=== PATIENT | female | born 1940 | race Two or more races ===

== ENCOUNTER 2017-03-29 15:13 | Inpatient (IN) | payer OTHER ==
[~2017-03-29] VITALS: Ht 157.5 cm; Wt 72.6 kg
--- NOTE | 2017-03-29 15:35 | PHYS DOC ---
Adult General Chief Complaint Chief Complaint: MECHANICAL FALL HPI HPI Patient is a 76 year old female who presents with left knee left ankle pain. She was washing her kitchen floor when she took her shoes off and slipped and fell. She denies any head injury neck pain back pain showing complains about her left knee and left ankle. Review of Systems Review of Systems Constitutional: Denies fever or chills [] Eyes: Denies change in visual acuity, redness, or eye pain [] HENT: Denies nasal congestion or sore throat [] Respiratory: Denies cough or shortness of breath [] Cardiovascular: No additional information not addressed in HPI [] GI: Denies abdominal pain, nausea, vomiting, bloody stools or diarrhea [] : Denies dysuria or hematuria [] Musculoskeletal: Denies back pain, positive for left knee left ankle pain Integument: Denies rash or skin lesions [] Neurologic: Denies headache, focal weakness or sensory changes [] Endocrine: Denies polyuria or polydipsia [] Current Medications Current Medications Current Medications Medications (Trade) Dose Ordered Sig/Antony Start Time Stop Time Status Last Admin Dose Admin Fentanyl Citrate (Fentanyl 2ml Vial) 25 mcg PRN Q15MIN PRN 03/29/17 18:00 03/30/17 17:59 03/29/17 18:13 25 MCG Allergies Allergies Allergies Coded Allergies Type Severity Reaction Last Updated Verified morphine Allergy Intermediate RASH 03/29/17 Yes atorvastatin Allergy Unknown RASH 03/29/17 Yes fenofibrate Allergy Unknown RASH 03/29/17 Yes metformin Allergy Unknown RASH 03/29/17 Yes phenobarbital Allergy Unknown EFFECTED PANCREAS 03/29/17 Yes phenytoin Allergy Unknown EFFECTED PANCREAS 03/29/17 Yes pioglitazone Allergy Unknown RASH 03/29/17 Yes primidone Allergy Unknown RASH 03/29/17 Yes simvastatin Allergy Unknown RASH 03/29/17 Yes sitagliptin Allergy Unknown RASH 03/29/17 Yes Physical Exam Physical Exam Constitutional: Well developed, well nourished, no acute distress, non-toxic appearance. [] HENT: Normocephalic, atraumatic, bilateral external ears normal, oropharynx moist, no oral exudates, nose normal. [] Eyes: PERRLA, EOMI, conjunctiva normal, no discharge. [] Neck: Normal range of motion, no tenderness, supple, no stridor. [] Cardiovascular:Heart rate regular rhythm, no murmur [] Lungs & Thorax: Bilateral breath sounds clear to auscultation [] Abdomen: Bowel sounds normal, soft, no tenderness, no masses, no pulsatile masses. [] Skin: Warm, dry, no erythema, no rash. [] Back: No tenderness, no CVA tenderness. [] Extremities: Tender palpation over the left ankle with ecchymosis, no obvious deformity noted, left knee shows some laxity with varus stress, anterior posterior drawer negative, no cyanosis, no clubbing, ROM intact, no edema. [] Neurologic: Alert and oriented X 3, normal motor function, normal sensory function, no focal deficits noted. [] Psychologic: Affect normal, judgement normal, mood normal. [] Current Patient Data Vital Signs Vital Signs Date Time Temp Pulse Resp B/P (MAP) Pulse Ox O2 Delivery O2 Flow Rate FiO2 03/29/17 18:00 61 17 214/107 (142) 97 Room Air 03/29/17 15:36 98.9 98.9 Lab Values Laboratory Tests Test 03/29/17 18:00 White Blood Count 13.2 x10^3/uL (4.0-11.0) H Red Blood Count 4.03 x10^6/uL (3.50-5.40) Hemoglobin 12.2 g/dL (12.0-15.5) Hematocrit 36.4 % (36.0-47.0) Mean Corpuscular Volume 91 fL (79-100) Mean Corpuscular Hemoglobin 30 pg (25-35) Mean Corpuscular Hemoglobin Concent 34 g/dL (31-37) Red Cell Distribution Width 13.0 % (11.5-14.5) Platelet Count 288 x10^3/uL (140-400) Neutrophils (%) (Auto) 80 % (31-73) H Lymphocytes (%) (Auto) 13 % (24-48) L Monocytes (%) (Auto) 5 % (0-9) Eosinophils (%) (Auto) 1 % (0-3) Basophils (%) (Auto) 0 % (0-3) Neutrophils # (Auto) 10.6 x10^3uL (1.8-7.7) H Lymphocytes # (Auto) 1.7 x10^3/uL (1.0-4.8) Monocytes # (Auto) 0.7 x10^3/uL (0.0-1.1) Eosinophils # (Auto) 0.1 x10^3/uL (0.0-0.7) Basophils # (Auto) 0.0 x10^3/uL (0.0-0.2) Prothrombin Time 13.5 SEC (11.7-14.0) Prothrombin Time INR 1.1 (0.8-1.1) PTT 27 SEC (24-38) Sodium Level 138 mmol/L (136-145) Potassium Level 3.8 mmol/L (3.5-5.1) Chloride Level 102 mmol/L (98-107) Carbon Dioxide Level 26 mmol/L (21-32) Anion Gap 10 (6-14) Blood Urea Nitrogen 15 mg/dL (7-20) Creatinine 0.7 mg/dL (0.6-1.0) Estimated GFR (Cockcroft-Gault) 80.9 Glucose Level 217 mg/dL (70-99) H Calcium Level 9.0 mg/dL (8.5-10.1) Laboratory Tests 03/29/17 18:00 Laboratory Tests 03/29/17 18:00 EKG EKG [] Radiology/Procedures Radiology/Procedures [address] [address] IMAGING REPORT Signed PATIENT: ANKITA GOOD ACCOUNT: [id number] : 1940 LOCATION: ER AGE: 76 SEX: F EXAM STATUS: REG ER ORD. PHYSICIAN: RHIANNA FONSECA MD REASON: fall PROCEDURE: KNEE LEFT 3V Indication pain associated with a fall. AP oblique and lateral views of the left knee were obtained. There is some modest lateral joint space compartment narrowing. There is a small knee joint effusion. An acute bony finding is not seen. IMPRESSION: No acute bony finding DICTATED and SIGNED BY: MIGUEL ANGEL WITT MD DATE: 03/29/17 1701 CC: [facility]; RHIANNA FONSECA MD ~ [address] [address] IMAGING REPORT Signed PATIENT: ANKITA GOOD ACCOUNT: [id number] : 1940 LOCATION: ER AGE: 76 SEX: F EXAM STATUS: REG ER ORD. PHYSICIAN: RHIANNA FONSECA MD REASON: pain PROCEDURE: ANKLE LEFT 3V Indication pain secondary to a fall. AP oblique and lateral views of the left ankle were obtained. There is a traumatic oblique nondisplaced fracture through the lateral malleolus. There is a transverse, traumatic, nondisplaced fracture through the medial malleolus. Associated soft tissue swelling is noted. Degenerative changes are noted involving the visualized midfoot IMPRESSION: Bimalleolar fracture left ankle DICTATED and SIGNED BY: MIGUEL ANGEL WITT MD DATE: 03/29/17 165 CC: [facility]; RHIANNA FONSECA MD ~ Impressions: Bimalleolar ankle fracture of the left Knee pain Diabetes Hypertension Seizure disorder Course & Med Decision Making Course & Med Decision Making Pertinent Labs and Imaging studies reviewed. (See chart for details) She presents with left ankle pain which shows a bimalleolar fracture. A posterior/U has been placed to stabilize the fracture. Splint was checked and dorsal pedis pulses intact and cap refills less than 2 seconds. Patient's being admitted to the hospitalist with consultation to Dr. Joseph. Patient's in stable condition this time with interim orders written. Dragon Disclaimer Dragon Disclaimer This electronic medical record was generated, in whole or in part, using a voice recognition dictation system. Departure Departure Impression: Primary Impression: Ankle fracture, left Disposition: ADMITTED INPATIENT Admitting Physician: Della Urrutia Condition: STABLE RHIANNA FONSECA MD Mar 29, 2017 15:34
--- NOTE | 2017-03-29 16:53 | RAD ---
Indication pain secondary to a fall. AP oblique and lateral views of the left ankle were obtained. There is a traumatic oblique nondisplaced fracture through the lateral malleolus. There is a transverse, traumatic, nondisplaced fracture through the medial malleolus. Associated soft tissue swelling is noted. Degenerative changes are noted involving the visualized midfoot IMPRESSION: Bimalleolar fracture left ankle
--- NOTE | 2017-03-29 17:05 | RAD ---
Indication pain associated with a fall. AP oblique and lateral views of the left knee were obtained. There is some modest lateral joint space compartment narrowing. There is a small knee joint effusion. An acute bony finding is not seen. IMPRESSION: No acute bony finding
[2017-03-29] MEDS ORDERED: fentaNYL PF VIAL 100 MCG/2 ML VIAL IV PRN (18:00)
[2017-03-29 18:15] LABS: BASO % 0 % (0-3); EOS % 1 % (0-3); HEMATOCRIT 36.4 % (36.0-47.0); HEMOGLOBIN 12.2 g/dL (12.0-15.5); LYMPH # 1.7 x10^3/uL (1.0-4.8); LYMPH % 13 % (24-48); MEAN CORPUSCULAR HEMOGLOBIN 30 pg (25-35); MEAN CORPUSCULAR HGB CONC 34 g/dL (31-37); MEAN CORPUSCULAR VOLUME 91 fL (79-100); MONO % 5 % (0-9); NEUT % 80 % (31-73); PLATELET COUNT 288 x10^3/uL (140-400); RED BLOOD COUNT 4.03 x10^6/uL (3.50-5.40); WHITE BLOOD COUNT 13.2 x10^3/uL (4.0-11.0)
[2017-03-29] MEDS ORDERED: ONDANSETRON PF 4 MG/2 ML VIAL. IV PRN ×2 (18:15→19:34)
[2017-03-29 18:28] LABS: INR 1.1 (0.8-1.1); PROTHROMBIN TIME PATIENT 13.5 SEC (11.7-14.0)
[2017-03-29 18:43] LABS: CREATININE 0.7 mg/dL (0.6-1.0); GFR 80.9; POTASSIUM 3.8 mmol/L (3.5-5.1)
[2017-03-29 19:30] VITALS: BP 157/67
[2017-03-29] MEDS ORDERED: DEXTROSE 50% 25 GM / 50ML DISP.SYRIN. IV PRN ×2 (19:45→21:15)
[2017-03-29] MEDS: ENOXAPARIN 40 MG/0.4 ML SYRINGE. SQ SCH (19:57)
[2017-03-29] MEDS: fentaNYL PF VIAL 100 MCG/2 ML VIAL IV PRN ×2 (19:58→22:37)
[2017-03-29] MEDS: FAMOTIDINE 20 MG/2 ML VIAL IVP SCH (19:58)
[2017-03-29] MEDS ORDERED: INSU100I13 SQ (20:21)
[2017-03-29] MEDS ORDERED: PRIM250T28 PO (20:21)
[2017-03-29] MEDS ORDERED: GLIP10TA13 PO (20:23)
[2017-03-29] MEDS ORDERED: CHOL10003 PO (21:12)
[2017-03-29] MEDS ORDERED: CLOP75TA PO (21:12)
[2017-03-29] MEDS ORDERED: FAMO20TA5 PO (21:12)
[2017-03-29] MEDS ORDERED: MULT-208 PO (21:12)
[2017-03-29] MEDS ORDERED: GABA-585 PO (21:12)
[2017-03-29] MEDS ORDERED: METO100T2 PO (21:12)
[2017-03-29] MEDS ORDERED: FENO54TA PO (21:12)
[2017-03-29] MEDS ORDERED: LOSA25TA4 PO (21:12)
--- NOTE | 2017-03-29 21:13 | PDOC1 ---
History and Physical Date of Admission Date of Admission DATE: 03/29/17 TIME: 21:06 Identification/Chief Complaint Chief Complaint kitchen floor fall Problems: Source Source: Caregiver, Chart review, Patient History of Present Illness History of Present Illness very pleasant 76 y/o female who lives at home with fellon her wet kitchen floor while she was cleaning it, landed/hurt her left ankle, could not bear weight afterwards so went to ER, shows bimalleolar fx. NO known CAD but has hx stable CHF. Follows with PCP, no cards needed. Admitted and scheduled for sx marie 8.AM. 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 Past Medical History Cardiovascular: HTN Pulmonary: Pulmonary embolus (10-15 yrs ago after hysterrectomy), Other Past Surgical History Past Surgical History: Hysterectomy Family History Family History: Hypertension Social History Smoke: No ALCOHOL: none Drugs: None Current Problem List Problem List Problems Medical Problems: (1) Ankle fracture, left Status: Acute Problems: Current Medications Current Medications Current Medications Fentanyl Citrate (Fentanyl 2ml Vial) 25 mcg PRN Q15MIN PRN IV PAIN GREATER THAN 3/10 Last administered on 03/29/17 18:13; Start 03/29/17 at 18:00; Stop 03/30 at 17:59 Ondansetron HCl (Zofran) 4 mg PRN Q8HRS PRN IV NAUSEA/VOMITING; Start 03/29/17 at 18:15; Stop 03/29/17 at 19:37; Status DC Fentanyl Citrate (Fentanyl 2ml Vial) 25 mcg PRN Q1HR PRN IV PAIN Last administered on 03/29/17 19:58; Start 03/29/17 at 18:15; Stop 03/30/17 at 18:14 Ondansetron HCl (Zofran) 4 mg PRN Q6HRS PRN IV NAUSEA/VOMITING; Start 03/29/17 at 19:34; Stop 03/30/17 at 19:33 Hydralazine HCl (Apresoline) 10 mg PRN Q4HRS PRN IVP ELEVATED BP, SEE COMMENTS ; Start 03/29/17 at 19:45 Enoxaparin Sodium (Lovenox 40mg Syringe) 40 mg Q24H SQ Last administered on 03/29 19:57; Start 03/29/17 at 19:45 Famotidine (Pepcid) 20 mg BID IVP Last administered on 03/29/17t 19:58; Start at 21:00 Acetaminophen (Tylenol) 500 mg PRN Q6HRS PRN PO MILD PAIN / TEMP; Start at 19:45 Insulin Aspart (NovoLOG) 0-7 UNITS TIDWMEALS SQ ; Start 03/30/17 at 08:00 Dextrose (Dextrose 50%-Water Syringe) 12.5 gm PRN Q15MIN PRN IV SEE COMMENTS; Start 03/29/17 at 19:45 Active Scripts Active Reported Glipizide 10 Mg Tablet 10 Mg PO BID Mysoline (Primidone) 250 Mg Tablet 250 Mg PO BID Lantus Solostar (Insulin Glargine,Hum.rec.anlog) 100 Unit/1 Ml Insuln.pen 25 Unit SQ HS Allergies Allergies: Coded Allergies: morphine (Verified Allergy, Intermediate, RASH, 03/29/17) atorvastatin (Verified Allergy, Unknown, RASH, 03/29/17) fenofibrate (Verified Allergy, Unknown, RASH, 03/29/17) metformin (Verified Allergy, Unknown, RASH, 03/29/17) phenobarbital (Verified Allergy, Unknown, EFFECTED PANCREAS, 03/29/17) phenytoin (Verified Allergy, Unknown, EFFECTED PANCREAS, 03/29/17) pioglitazone (Verified Allergy, Unknown, RASH, 03/29/17) primidone (Verified Allergy, Unknown, RASH, 03/29/17) simvastatin (Verified Allergy, Unknown, RASH, 03/29/17) sitagliptin (Verified Allergy, Unknown, RASH, 03/29/17) ROS General: No: Chills, Night Sweats, Fatigue, Malaise, Appetite, Other PSYCHOLOGICAL ROS: No: Anxiety, Behavioral Disorder, Concentration difficultie , Decreased libido, Depression, Disorientation, Hallucinations, Hostility, Irritablity, Memory difficulties, Mood Swings, Obsessive thoughts, Physical abuse, Sexual abuse, Sleep disturbances, Suicidal ideation, Other Eyes: No Blurry vision, No Decreased vision, No Double vision, No Dry eyes, No Excessive tearing, No Eye Pain, No Itchy Eyes, No Loss of vision, No Photophobia , No Scotomata, No Uses contacts, No Uses glasses, No Other HEENT: No: Heacaches, Visual Changes, Hearing change, Nasal congestion, Nasal discharge, Oral lesions, Sinus pain, Sore Throat, Epistaxis, Sneezing, Snoring, Tinnitus, Vertigo, Vocal changes, Other ALLERGY AND IMMUNOLOGY: No: Hives, Insect Bite Sensitivity, Itchy/Watery Eyes, Nasal Congestion, Post Nasal Drip, Seasonal Allergies, Other Hematological and Lymphatic: No: Bleeding Problems, Blood Clots, Blood Transfusions, Brusing, Night Sweats, Pallor, Swollen Lymph Nodes, Other ENDOCRINE: No: Breast Changes, Galactorrhea, Hair Pattern Changes, Hot Flashes , Malaise/lethargy, Mood Swings, Palpitations, Polydipsia/polyuria, Skin Changes , Temperature Intolerance, Unexpected Weight Changes, Other Breast: No New/Changing Breast Lumps, No Nipple changes, No Nipple discharge, No Other Respiratory: No: Cough, Hemoptysis, Orthopnea, Pleuritic Pain, Shortness of breath, SOB with excertion, Sputum Changes, Stridor, Tachypnea, Wheezing, Other Cardiovascular: No Chest Pain, No Palpitations, No Orthopnea, No Paroxysmal Noc. Dyspnea, No Edema, No Lt Headedness, No Other Gastrointestinal: No Nausea, No Vomiting, No Abdominal Pain, No Diarrhea, No Constipation, No Melena, No Hematochezia, No Other Genitourinary: No Dysuria, No Frequency, No Incontinence, No Hematuria, No Retention, No Discharge, No Urgency, No Pain, No Flank Pain, No Other, No , No , No , No , No , No , No Musculoskeletal: Yes Other (per HPI) Neurological: No Behavorial Changes, No Bowel/Bladder ControlChng, No Confusion , No Dizziness, No Gait Disturbance, No Headaches, No Impaired Coord/balance, No Memory Loss, No Numbness/Tingling, No Seizures, No Speech Problems, No Tremors, No Visual Changes, No Weakness, No Other Skin: No Dry Skin, No Eczema, No Hair Changes, No Lumps, No Mole Changes, No Mottling, No Nail Changes, No Pruritus, No Rash, No Skin Lesion Changes, No Other, No Acne Physical Exam General: Alert, Oriented X3, Cooperative, No acute distress HEENT: PERRLA, EOMI Lungs: Clear to auscultation Heart: S1S2, RRR, no thrills, no rubs, no gallops, no murmurs Breasts: Normal, Rt breast nml w/o mass, Lt breast nml w/o mass, Nipples normal Abdomen: Normal bowel sounds, Soft, No tenderness, No hepatosplenomegaly, No masses Rectal Exam: not examined PELVIC: Nml ext genitalia Extremities: Other (cast n R ankle./leg) Skin: No rashes, No breakdown, No significant lesion Neuro: Normal gait, Normal speech, Strength at 5/5 X4 ext, Normal tone, Sensation intact, Cranial nerves 3-12 NL, Reflexes 2+ Psych/Mental Status: Mental status NL Vitals Vitals Vital Signs Date Time Temp Pulse Resp B/P (MAP) Pulse Ox O2 Delivery O2 Flow Rate FiO2 03/29/17 20:30 16 Room Air 03/29/17 19:30 98.6 64 157/67 (97) 97 98.6 Labs Labs Laboratory Tests Test 03/29/17 18:00 03/29/17 20:51 White Blood Count 13.2 x10^3/uL (4.0-11.0) Red Blood Count 4.03 x10^6/uL (3.50-5.40) Hemoglobin 12.2 g/dL (12.0-15.5) Hematocrit 36.4 % (36.0-47.0) Mean Corpuscular Volume 91 fL (79-100) Mean Corpuscular Hemoglobin 30 pg (25-35) Mean Corpuscular Hemoglobin Concent 34 g/dL (31-37) Red Cell Distribution Width 13.0 % (11.5-14.5) Platelet Count 288 x10^3/uL (140-400) Neutrophils (%) (Auto) 80 % (31-73) Lymphocytes (%) (Auto) 13 % (24-48) Monocytes (%) (Auto) 5 % (0-9) Eosinophils (%) (Auto) 1 % (0-3) Basophils (%) (Auto) 0 % (0-3) Neutrophils # (Auto) 10.6 x10^3uL (1.8-7.7) Lymphocytes # (Auto) 1.7 x10^3/uL (1.0-4.8) Monocytes # (Auto) 0.7 x10^3/uL (0.0-1.1) Eosinophils # (Auto) 0.1 x10^3/uL (0.0-0.7) Basophils # (Auto) 0.0 x10^3/uL (0.0-0.2) Prothrombin Time 13.5 SEC (11.7-14.0) Prothromb Time International Ratio 1.1 (0.8-1.1) Activated Partial Thromboplast Time 27 SEC (24-38) Sodium Level 138 mmol/L (136-145) Potassium Level 3.8 mmol/L (3.5-5.1) Chloride Level 102 mmol/L (98-107) Carbon Dioxide Level 26 mmol/L (21-32) Anion Gap 10 (6-14) Blood Urea Nitrogen 15 mg/dL (7-20) Creatinine 0.7 mg/dL (0.6-1.0) Estimated GFR (Cockcroft-Gault) 80.9 Glucose Level 217 mg/dL (70-99) Calcium Level 9.0 mg/dL (8.5-10.1) Glucose (Fingerstick) 228 mg/dL (70-99) Laboratory Tests Test 03/29/17 18:00 03/29/17 20:51 White Blood Count 13.2 x10^3/uL (4.0-11.0) Red Blood Count 4.03 x10^6/uL (3.50-5.40) Hemoglobin 12.2 g/dL (12.0-15.5) Hematocrit 36.4 % (36.0-47.0) Mean Corpuscular Volume 91 fL (79-100) Mean Corpuscular Hemoglobin 30 pg (25-35) Mean Corpuscular Hemoglobin Concent 34 g/dL (31-37) Red Cell Distribution Width 13.0 % (11.5-14.5) Platelet Count 288 x10^3/uL (140-400) Neutrophils (%) (Auto) 80 % (31-73) Lymphocytes (%) (Auto) 13 % (24-48) Monocytes (%) (Auto) 5 % (0-9) Eosinophils (%) (Auto) 1 % (0-3) Basophils (%) (Auto) 0 % (0-3) Neutrophils # (Auto) 10.6 x10^3uL (1.8-7.7) Lymphocytes # (Auto) 1.7 x10^3/uL (1.0-4.8) Monocytes # (Auto) 0.7 x10^3/uL (0.0-1.1) Eosinophils # (Auto) 0.1 x10^3/uL (0.0-0.7) Basophils # (Auto) 0.0 x10^3/uL (0.0-0.2) Prothrombin Time 13.5 SEC (11.7-14.0) Prothromb Time International Ratio 1.1 (0.8-1.1) Activated Partial Thromboplast Time 27 SEC (24-38) Sodium Level 138 mmol/L (136-145) Potassium Level 3.8 mmol/L (3.5-5.1) Chloride Level 102 mmol/L (98-107) Carbon Dioxide Level 26 mmol/L (21-32) Anion Gap 10 (6-14) Blood Urea Nitrogen 15 mg/dL (7-20) Creatinine 0.7 mg/dL (0.6-1.0) Estimated GFR (Cockcroft-Gault) 80.9 Glucose Level 217 mg/dL (70-99) Calcium Level 9.0 mg/dL (8.5-10.1) Glucose (Fingerstick) 228 mg/dL (70-99) VTE Prophylaxis Ordered VTE Prophylaxis Devices: Yes VTE Pharmacological Prophylaxi: Yes Assessment/Plan Assessment/Plan 1. R bimalleolar ankle fx after mechanical fall, closed 2. REactive leukocytosis 3. DM 2 with hyperglycemia PLAn: Admit NPO post [facility] consult SSI moderate dose Dec levemir to 10 qhs since NPO (BS 220s) DVt prophy Dw pt and RN Cleared from IM to undergo sx CHRISTEN Kerr MD Mar 29, 2017 21:13
[2017-03-29 21:44] LABS: BILIRUBIN,URINE NEGATIVE (NEG); GLUCOSE,URINE 100 mg/dL (NEG); NITRITE,URINE NEGATIVE (NEG); PROTEIN,URINE NEGATIVE (NEG-TRACE); UROBILINOGEN,URINE 0.2 mg/dL (0.2 mg/dL)
[2017-03-29 21:55] LABS: BACTERIA,URINE MANY /HPF (0-FEW); RBC,URINE OCC /HPF (0-2); SQUAMOUS EPITHELIAL CELL,UR MOD /LPF; WBC,URINE 20-40 /HPF (0-4)
[2017-03-29 21:56] LABS: YEAST,URINE PRESENT /HPF
[2017-03-29] MEDS: INSULIN DETEMIR 300 UNITS/3 ML INSULN.PEN. SQ SCH (22:22)
[2017-03-29] MEDS: hydrALAZINE 20 MG/ML VIAL. IVP PRN (23:13)
[2017-03-29 23:17] VITALS: BP 191/55
[2017-03-29] MEDS: ACETAMINOPHEN 500 MG TABLET PO PRN (23:19)
[2017-03-30] VITALS (8 sets, daily range): BP systolic 102–198; BP diastolic 39–67
[2017-03-30 05:22] LABS: BASO % 0 % (0-3); EOS % 0 % (0-3); HEMATOCRIT 32.4 % (36.0-47.0); HEMOGLOBIN 10.8 g/dL (12.0-15.5); LYMPH # 1.5 x10^3/uL (1.0-4.8); LYMPH % 13 % (24-48); MEAN CORPUSCULAR HEMOGLOBIN 30 pg (25-35); MEAN CORPUSCULAR HGB CONC 33 g/dL (31-37); MEAN CORPUSCULAR VOLUME 90 fL (79-100); MONO % 5 % (0-9); NEUT % 82 % (31-73); PLATELET COUNT 261 x10^3/uL (140-400); RED BLOOD COUNT 3.61 x10^6/uL (3.50-5.40); RED CELL DISTRIBUTION WIDTH 12.9 % (11.5-14.5)
[2017-03-30 05:54] LABS: CALCIUM 8.8 mg/dL (8.5-10.1); CREATININE 0.6 mg/dL (0.6-1.0); GFR 96.7; POTASSIUM 3.7 mmol/L (3.5-5.1)
[2017-03-30] MEDS ORDERED: LATA2.5D3 OP (06:07)
[2017-03-30] MEDS ORDERED: INSULIN ASPART 300 UNITS/3 ML INSULN.PEN SQ SCH (08:00)
[2017-03-30] MEDS: glipiZIDE 5 MG TABLET PO SCH ×2 (08:00→16:45)
[2017-03-30] MEDS: INSULIN ASPART 300 UNITS/3 ML INSULN.PEN SQ SCH ×3 (08:00→16:50)
[2017-03-30] MEDS: fentaNYL PF VIAL 100 MCG/2 ML VIAL IV PRN ×3 (08:30→14:06)
[2017-03-30] MEDS: PRIMIDONE 250 MG TABLET PO SCH ×2 (09:00→20:36)
[2017-03-30] MEDS ORDERED: CLOPIDOGREL BISULFATE 75 MG TABLET PO SCH (09:00)
[2017-03-30] MEDS: METOPROLOL TART IMMED RELEASE 50 MG TABLET. PO SCH (09:00)
[2017-03-30] MEDS: FAMOTIDINE 20 MG/2 ML VIAL IVP SCH (09:00)
[2017-03-30] MEDS: FENOFIBRATE 54 MG TABLET. PO SCH (09:00)
[2017-03-30] MEDS ORDERED: FAMOTIDINE 20 MG TABLET. PO SCH (09:00)
[2017-03-30] MEDS: GABAPENTIN 100 MG CAPSULE. PO SCH ×3 (09:00→20:37)
[2017-03-30] MEDS: LOSARTAN POTASSIUM 25 MG TABLET. PO SCH (09:00)
[2017-03-30] MEDS: MULTIVITAMIN with MINERAL TABLET. PO SCH (09:00)
[2017-03-30] MEDS: CHOLECALCIFEROL (VITAMIN D3) 1,000 UNIT TABLET PO SCH (09:00)
--- NOTE | 2017-03-30 13:11 | PDOC2 ---
CONSULT Date of Consult Date of Consult DATE: 03/30/17 TIME: 12:54 Reason for Consult Reason for Consult: left ankle pain Referring Physician Referring Physician: Renan Identification/Chief Complaint Chief Complaint left ankle pain Source Source: Chart review, Patient History of Present Illness Reason for Visit: The patient is a 76 year old female who presents today with a chief complaint of left ankle pain. She presented to the ER after she slipped and fell on her freshly mopped floor. She says she lives at home with her . She uses a walker frequently for balance due to frequent falls. She is an insulin dependent diabetic who has also had a significant PE after a previous surgery. She has never had orthopedic surgery she reports. She is very anxious wondering if she will be able to walk again. Her pain is moderately severe, she was placed in a splint in the ER. Past Medical History Cardiovascular: HTN Pulmonary: Pulmonary embolus (10-15 yrs ago after hysterrectomy), Other Past Surgical History Past Surgical History: Hysterectomy Family History Family History: Hypertension Social History No ALCOHOL: none Drugs: None Lives: with Family Current Problem List Problem List Problems Medical Problems: (1) Ankle fracture, left Status: Acute Current Medications Current Medications Current Medications Fentanyl Citrate (Fentanyl 2ml Vial) 25 mcg PRN Q15MIN PRN IV PAIN GREATER THAN 3/10 Last administered on 03/29/17 18:13; Start 03/29/17 at 18:00; Stop 03/30 at 17:59 Ondansetron HCl (Zofran) 4 mg PRN Q8HRS PRN IV NAUSEA/VOMITING; Start 03/29/17 at 18:15; Stop 03/29/17 at 19:37; Status DC Fentanyl Citrate (Fentanyl 2ml Vial) 25 mcg PRN Q1HR PRN IV PAIN Last administered on 03/30/17 12:11; Start 03/29/17 at 18:15; Stop 03/30/17 at 18:14 Ondansetron HCl (Zofran) 4 mg PRN Q6HRS PRN IV NAUSEA/VOMITING; Start 03/29/17 at 19:34; Stop 03/30/17 at 19:33 Hydralazine HCl (Apresoline) 10 mg PRN Q4HRS PRN IVP ELEVATED BP, SEE COMMENTS Last administered on 03/29/17 23:13; Start 03/29/17 at 19:45 Enoxaparin Sodium (Lovenox 40mg Syringe) 40 mg Q24H SQ Last administered on 03/29 19:57; Start 03/29/17 at 19:45 Famotidine (Pepcid) 20 mg BID IVP Last administered on 03/30/17 09:00; Start at 21:00 Acetaminophen (Tylenol) 500 mg PRN Q6HRS PRN PO MILD PAIN / TEMP Last administered on 03/29/17 23:19; Start 03/29/17 at 19:45 Insulin Aspart (NovoLOG) 0-7 UNITS TIDWMEALS SQ ; Start 03/30/17 at 08:00; Stop 03/30/17 at 08:00; Status DC Dextrose (Dextrose 50%-Water Syringe) 12.5 gm PRN Q15MIN PRN IV SEE COMMENTS; Start 03/29/17 at 19:45 Insulin Aspart (NovoLOG) 0-7 UNITS TIDWMEALS SQ Last administered on 03/30/17 12:06; Start 03/30/17 at 08:00 Dextrose (Dextrose 50%-Water Syringe) 12.5 gm PRN Q15MIN PRN IV SEE COMMENTS; Start 03/29/17 at 21:15 Insulin Detemir (Levemir) 10 units QHS SQ Last administered on 03/29/17 22:22; Start 03/29/17 at 21:15 Vitamin D (Vitamin D3) 1,000 unit DAILY PO Last administered on 03/30/17 09:00 ; Start 03/30/17 at 09:00 Clopidogrel Bisulfate (Plavix) 75 mg DAILY PO Last administered on 03/30/17 09: 00; Start 03/30/17 at 09:00 Famotidine (Pepcid) 20 mg DAILY PO ; Start 03/30/17 at 09:00; Status Cancel Fenofibrate (Lofibra) 54 mg DAILY PO Last administered on 03/30/17 09:00; Start 03/30/17 at 09:00 Gabapentin (Neurontin) 100 mg TID PO Last administered on 03/30/17 09:00; Start 03/30/17 at 09:00 Losartan Potassium (Cozaar) 25 mg DAILY PO Last administered on 03/30/17 09:00 ; Start 03/30/17 at 09:00 Primidone (Mysoline) 250 mg BID PO Last administered on 03/30/17 09:00; Start 03/30/17 at 09:00 Glipizide (Glucotrol) 10 mg BIDWMEALS PO Last administered on 03/30/17 08:00; Start 03/30/17 at 08:00 Metoprolol Tartrate (Lopressor) 150 mg DAILY PO Last administered on 03/30/17 09:00; Start 03/30/17 at 09:00 Multivitamins (Thera M Plus) 1 tab DAILY PO Last administered on 03/30/17 09:00 ; Start 03/30/17 at 09:00 Latanoprost (Xalatan) 1 drop HS OU ; Start 03/30/17 at 21:00 Ondansetron HCl (Zofran) 4 mg PRN Q6HRS PRN IV NAUSEA/VOMITING; Start 03/31/17 at 07:00; Stop 04/01/17 at 06:59 Fentanyl Citrate (Fentanyl 2ml Vial) 25 mcg PRN Q5MIN PRN IV MILD PAIN; Start 03/31/17 at 07:00; Stop 04/01/17 at 06:59 Fentanyl Citrate (Fentanyl 2ml Vial) 50 mcg PRN Q5MIN PRN IV MODERATE PAIN; Start 03/31/17 at 07:00; Stop 04/01/17 at 06:59 Ringer's Solution 1,000 ml @ 0 mls/hr Q0M IV ; Start 03/31/17 at 07:00; Stop 03/31/17 at 18:59 Lidocaine HCl 2 ml PRN 1X PRN ID PRIOR TO IV START; Start 03/31/17 at 07:00; Stop 04/01/17 at 06:59 Prochlorperazine Edisylate (Compazine) 5 mg PACU PRN PRN IV NAUSEA, MRX1; Start 03/31/17 at 07:00; Stop 04/01/17 at 06:59 Active Scripts Active Reported Latanoprost 2.5 Ml Drops 1 Drop OP HS Fenofibrate 54 Mg Tablet 54 Mg PO DAILY Clopidogrel (Clopidogrel Bisulfate) 75 Mg Tablet 75 Mg PO DAILY Multi-Day Vitamins (Multivitamin) 1 Each Tablet 1 Each PO DAILY Vitamin D3 (Cholecalciferol (Vitamin D3)) 1,000 Unit Tablet 1,000 Unit PO DAILY Gabapentin 100 Mg Capsule 100 Mg PO TID Metoprolol Tartrate 100 Mg Tablet 150 Mg PO DAILY Losartan Potassium 25 Mg Tablet 25 Mg PO DAILY Famotidine 20 Mg Tablet 20 Mg PO DAILY Glipizide 10 Mg Tablet 10 Mg PO BID Mysoline (Primidone) 250 Mg Tablet 250 Mg PO BID Lantus Solostar (Insulin Glargine,Hum.rec.anlog) 100 Unit/1 Ml Insuln.pen 25 Unit SQ HS Allergies Allergies: Coded Allergies: morphine (Verified Allergy, Intermediate, RASH, 03/29/17) atorvastatin (Verified Allergy, Unknown, RASH, 03/29/17) metformin (Verified Allergy, Unknown, RASH, 03/29/17) phenobarbital (Verified Allergy, Unknown, EFFECTED PANCREAS, 03/29/17) phenytoin (Verified Allergy, Unknown, EFFECTED PANCREAS, 03/29/17) pioglitazone (Verified Allergy, Unknown, RASH, 03/29/17) simvastatin (Verified Allergy, Unknown, RASH, 03/29/17) sitagliptin (Verified Allergy, Unknown, RASH, 03/29/17) ROS General: No: Chills, Night Sweats, Fatigue, Malaise, Appetite, Other Musculoskeletal: Yes Gait Disturbance, Yes Joint Pain, Yes Joint Swelling Physical Exam General: Alert, Oriented X3, Cooperative, No acute distress MUSCULOSKELETAL: Other (LEFT LOWER EXTREMITY: in posterior mold splint with a u slab. skin intact, no blistering. Sensation intact to light touch in the tibial, superficial and deep peroneal, and sural nerve distribution. ) Vitals VITALS Vital Signs Date Time Temp Pulse Resp B/P (MAP) Pulse Ox O2 Delivery O2 Flow Rate FiO2 03/30/17 12:11 16 Nasal Cannula 03/30/17 11:00 98.2 63 161/48 (85) 95 98.2 Labs Labs Laboratory Tests Test 03/29/17 17:37 03/29/17 18:00 03/29/17 20:51 03/30/17 05:00 Urine Collection Type Unknown Urine Color Yellow Urine Clarity Cloudy Urine pH 6.0 Urine Specific [place] 1.015 Urine Protein Negative mg/dL (NEG-TRACE) Urine Glucose (UA) 100 mg/dL (NEG) Urine Ketones (Stick) Negative mg/dL (NEG) Urine Blood Negative (NEG) Urine Nitrite Negative (NEG) Urine Bilirubin Negative (NEG) Urine Urobilinogen Dipstick 0.2 mg/dL (0.2 mg/dL) Urine Leukocyte Esterase Moderate (NEG) Urine RBC Occ /HPF (0-2) Urine WBC 20-40 /HPF (0-4) Urine Squamous Epithelial Cells Mod /LPF Urine Bacteria Many /HPF (0-FEW) Urine Mucus Slight /LPF Urine Yeast Present /HPF White Blood Count 13.2 x10^3/uL (4.0-11.0) 12.0 x10^3/uL (4.0-11.0) Red Blood Count 4.03 x10^6/uL (3.50-5.40) 3.61 x10^6/uL (3.50-5.40) Hemoglobin 12.2 g/dL (12.0-15.5) 10.8 g/dL (12.0-15.5) Hematocrit 36.4 % (36.0-47.0) 32.4 % (36.0-47.0) Mean Corpuscular Volume 91 fL (79-100) 90 fL (79-100) Mean Corpuscular Hemoglobin 30 pg (25-35) 30 pg (25-35) Mean Corpuscular Hemoglobin Concent 34 g/dL (31-37) 33 g/dL (31-37) Red Cell Distribution Width 13.0 % (11.5-14.5) 12.9 % (11.5-14.5) Platelet Count 288 x10^3/uL (140-400) 261 x10^3/uL (140-400) Neutrophils (%) (Auto) 80 % (31-73) 82 % (31-73) Lymphocytes (%) (Auto) 13 % (24-48) 13 % (24-48) Monocytes (%) (Auto) 5 % (0-9) 5 % (0-9) Eosinophils (%) (Auto) 1 % (0-3) 0 % (0-3) Basophils (%) (Auto) 0 % (0-3) 0 % (0-3) Neutrophils # (Auto) 10.6 x10^3uL (1.8-7.7) 9.8 x10^3uL (1.8-7.7) Lymphocytes # (Auto) 1.7 x10^3/uL (1.0-4.8) 1.5 x10^3/uL (1.0-4.8) Monocytes # (Auto) 0.7 x10^3/uL (0.0-1.1) 0.6 x10^3/uL (0.0-1.1) Eosinophils # (Auto) 0.1 x10^3/uL (0.0-0.7) 0.0 x10^3/uL (0.0-0.7) Basophils # (Auto) 0.0 x10^3/uL (0.0-0.2) 0.0 x10^3/uL (0.0-0.2) Prothrombin Time 13.5 SEC (11.7-14.0) Prothromb Time International Ratio 1.1 (0.8-1.1) Activated Partial Thromboplast Time 27 SEC (24-38) Sodium Level 138 mmol/L (136-145) 136 mmol/L (136-145) Potassium Level 3.8 mmol/L (3.5-5.1) 3.7 mmol/L (3.5-5.1) Chloride Level 102 mmol/L (98-107) 102 mmol/L (98-107) Carbon Dioxide Level 26 mmol/L (21-32) 23 mmol/L (21-32) Anion Gap 10 (6-14) 11 (6-14) Blood Urea Nitrogen 15 mg/dL (7-20) 15 mg/dL (7-20) Creatinine 0.7 mg/dL (0.6-1.0) 0.6 mg/dL (0.6-1.0) Estimated GFR (Cockcroft-Gault) 80.9 96.7 Glucose Level 217 mg/dL (70-99) 200 mg/dL (70-99) Calcium Level 9.0 mg/dL (8.5-10.1) 8.8 mg/dL (8.5-10.1) Glucose (Fingerstick) 228 mg/dL (70-99) Test 03/30/17 07:34 03/30/17 11:35 Glucose (Fingerstick) 159 mg/dL (70-99) 258 mg/dL (70-99) Laboratory Tests Test 03/29/17 17:37 03/29/17 18:00 03/29/17 20:51 03/30/17 05:00 Urine Collection Type Unknown Urine Color Yellow Urine Clarity Cloudy Urine pH 6.0 Urine Specific [place] 1.015 Urine Protein Negative mg/dL (NEG-TRACE) Urine Glucose (UA) 100 mg/dL (NEG) Urine Ketones (Stick) Negative mg/dL (NEG) Urine Blood Negative (NEG) Urine Nitrite Negative (NEG) Urine Bilirubin Negative (NEG) Urine Urobilinogen Dipstick 0.2 mg/dL (0.2 mg/dL) Urine Leukocyte Esterase Moderate (NEG) Urine RBC Occ /HPF (0-2) Urine WBC 20-40 /HPF (0-4) Urine Squamous Epithelial Cells Mod /LPF Urine Bacteria Many /HPF (0-FEW) Urine Mucus Slight /LPF Urine Yeast Present /HPF White Blood Count 13.2 x10^3/uL (4.0-11.0) 12.0 x10^3/uL (4.0-11.0) Red Blood Count 4.03 x10^6/uL (3.50-5.40) 3.61 x10^6/uL (3.50-5.40) Hemoglobin 12.2 g/dL (12.0-15.5) 10.8 g/dL (12.0-15.5) Hematocrit 36.4 % (36.0-47.0) 32.4 % (36.0-47.0) Mean Corpuscular Volume 91 fL (79-100) 90 fL (79-100) Mean Corpuscular Hemoglobin 30 pg (25-35) 30 pg (25-35) Mean Corpuscular Hemoglobin Concent 34 g/dL (31-37) 33 g/dL (31-37) Red Cell Distribution Width 13.0 % (11.5-14.5) 12.9 % (11.5-14.5) Platelet Count 288 x10^3/uL (140-400) 261 x10^3/uL (140-400) Neutrophils (%) (Auto) 80 % (31-73) 82 % (31-73) Lymphocytes (%) (Auto) 13 % (24-48) 13 % (24-48) Monocytes (%) (Auto) 5 % (0-9) 5 % (0-9) Eosinophils (%) (Auto) 1 % (0-3) 0 % (0-3) Basophils (%) (Auto) 0 % (0-3) 0 % (0-3) Neutrophils # (Auto) 10.6 x10^3uL (1.8-7.7) 9.8 x10^3uL (1.8-7.7) Lymphocytes # (Auto) 1.7 x10^3/uL (1.0-4.8) 1.5 x10^3/uL (1.0-4.8) Monocytes # (Auto) 0.7 x10^3/uL (0.0-1.1) 0.6 x10^3/uL (0.0-1.1) Eosinophils # (Auto) 0.1 x10^3/uL (0.0-0.7) 0.0 x10^3/uL (0.0-0.7) Basophils # (Auto) 0.0 x10^3/uL (0.0-0.2) 0.0 x10^3/uL (0.0-0.2) Prothrombin Time 13.5 SEC (11.7-14.0) Prothromb Time International Ratio 1.1 (0.8-1.1) Activated Partial Thromboplast Time 27 SEC (24-38) Sodium Level 138 mmol/L (136-145) 136 mmol/L (136-145) Potassium Level 3.8 mmol/L (3.5-5.1) 3.7 mmol/L (3.5-5.1) Chloride Level 102 mmol/L (98-107) 102 mmol/L (98-107) Carbon Dioxide Level 26 mmol/L (21-32) 23 mmol/L (21-32) Anion Gap 10 (6-14) 11 (6-14) Blood Urea Nitrogen 15 mg/dL (7-20) 15 mg/dL (7-20) Creatinine 0.7 mg/dL (0.6-1.0) 0.6 mg/dL (0.6-1.0) Estimated GFR (Cockcroft-Gault) 80.9 96.7 Glucose Level 217 mg/dL (70-99) 200 mg/dL (70-99) Calcium Level 9.0 mg/dL (8.5-10.1) 8.8 mg/dL (8.5-10.1) Glucose (Fingerstick) 228 mg/dL (70-99) Test 03/30/17 07:34 03/30/17 11:35 Glucose (Fingerstick) 159 mg/dL (70-99) 258 mg/dL (70-99) Images Images Xrays of the left knee and ankle reveal no acute fracture or dislocation of the knee, she has a low bimalleolar ankle fracture on the left, minimally displaced. ankle mortise appears intact. osteopenic bone Assessment/Plan Assessment/Plan The patient is a 76 year old female who presented to the ER with a left bimalleolar ankle fracture after a slip and a fall. We discussed non-operative versus operative treatment of the patient's ankle fracture. The risks of surgery including the risk of undergoing anesthesia, bleeding, infection, nerve damage, malunion, and nonunion, blood clots were discussed at length. The benefits of surgery including pain relief and functional improvement of the ankle were also discussed. We also discussed the postoperative course of immobilization, weight restrictions, and physical therapy required after surgery. After a thorough discussion of the risks and benefits of an open reduction internal fixation of her left ankle fracture, the patient elected to proceed with surgery. The patient exhibited understanding of the risks and benefits of surgery, and all questions were answered. Plan for OR in the am, due to or availability. NPO at midnight will check vitamin D level patient is non-weight bearing on her left lower extremity both pre and postoperatively. anticipate she may need rehab after surgery. ALONZO TORREZ MD Mar 30, 2017 13:11
[2017-03-30] MEDS ORDERED: fentaNYL PF VIAL 100 MCG/2 ML VIAL IV PRN (16:15)
[2017-03-30] MEDS: oxyCODONE IR 5 MG TABLET PO PRN ×2 (16:45→20:41)
--- NOTE | 2017-03-30 17:12 | PDOC ---
PROGRESS NOTES Chief Complaint Chief Complaint Fall with L ankle fx ASSESSMENT AND PLAN: 1. L ankle fx: plan for fixation in AM by Dr Joseph. 2. Pain control: adequate. 3. UTI: empiriv ceftriax (single dose should be sufficient). culture pending 4. Hypertension: well controlled on low dose Cozaar. 5. DM2: fairly well controled on home glipizide. ISS added 6. CHF: by pt report; no clinical sx, no home meds 7. Prophylaxis: lovenox History of Present Illness History of Present Illness pain well controlled. no other c/o Vitals Vitals Vital Signs Date Time Temp Pulse Resp B/P (MAP) Pulse Ox O2 Delivery O2 Flow Rate FiO2 03/30/17 16:45 16 Room Air 03/30/17 11:00 98.2 63 161/48 (85) 95 98.2 Physical Exam General: Alert, Oriented X3, Cooperative, No acute distress Heart: Regular rate Lungs: Clear Abdomen: Normal bowel sounds, Soft, No tenderness Extremities: Other (cast L distal LE) Skin: No rashes Labs LABS Laboratory Tests Test 03/29/17 17:37 03/29/17 18:00 03/29/17 20:51 03/30/17 05:00 Urine Collection Type Unknown Urine Color Yellow Urine Clarity Cloudy Urine pH 6.0 Urine Specific [place] 1.015 Urine Protein Negative mg/dL (NEG-TRACE) Urine Glucose (UA) 100 mg/dL (NEG) Urine Ketones (Stick) Negative mg/dL (NEG) Urine Blood Negative (NEG) Urine Nitrite Negative (NEG) Urine Bilirubin Negative (NEG) Urine Urobilinogen Dipstick 0.2 mg/dL (0.2 mg/dL) Urine Leukocyte Esterase Moderate (NEG) Urine RBC Occ /HPF (0-2) Urine WBC 20-40 /HPF (0-4) Urine Squamous Epithelial Cells Mod /LPF Urine Bacteria Many /HPF (0-FEW) Urine Mucus Slight /LPF Urine Yeast Present /HPF White Blood Count 13.2 x10^3/uL (4.0-11.0) 12.0 x10^3/uL (4.0-11.0) Red Blood Count 4.03 x10^6/uL (3.50-5.40) 3.61 x10^6/uL (3.50-5.40) Hemoglobin 12.2 g/dL (12.0-15.5) 10.8 g/dL (12.0-15.5) Hematocrit 36.4 % (36.0-47.0) 32.4 % (36.0-47.0) Mean Corpuscular Volume 91 fL (79-100) 90 fL (79-100) Mean Corpuscular Hemoglobin 30 pg (25-35) 30 pg (25-35) Mean Corpuscular Hemoglobin Concent 34 g/dL (31-37) 33 g/dL (31-37) Red Cell Distribution Width 13.0 % (11.5-14.5) 12.9 % (11.5-14.5) Platelet Count 288 x10^3/uL (140-400) 261 x10^3/uL (140-400) Neutrophils (%) (Auto) 80 % (31-73) 82 % (31-73) Lymphocytes (%) (Auto) 13 % (24-48) 13 % (24-48) Monocytes (%) (Auto) 5 % (0-9) 5 % (0-9) Eosinophils (%) (Auto) 1 % (0-3) 0 % (0-3) Basophils (%) (Auto) 0 % (0-3) 0 % (0-3) Neutrophils # (Auto) 10.6 x10^3uL (1.8-7.7) 9.8 x10^3uL (1.8-7.7) Lymphocytes # (Auto) 1.7 x10^3/uL (1.0-4.8) 1.5 x10^3/uL (1.0-4.8) Monocytes # (Auto) 0.7 x10^3/uL (0.0-1.1) 0.6 x10^3/uL (0.0-1.1) Eosinophils # (Auto) 0.1 x10^3/uL (0.0-0.7) 0.0 x10^3/uL (0.0-0.7) Basophils # (Auto) 0.0 x10^3/uL (0.0-0.2) 0.0 x10^3/uL (0.0-0.2) Prothrombin Time 13.5 SEC (11.7-14.0) Prothromb Time International Ratio 1.1 (0.8-1.1) Activated Partial Thromboplast Time 27 SEC (24-38) Sodium Level 138 mmol/L (136-145) 136 mmol/L (136-145) Potassium Level 3.8 mmol/L (3.5-5.1) 3.7 mmol/L (3.5-5.1) Chloride Level 102 mmol/L (98-107) 102 mmol/L (98-107) Carbon Dioxide Level 26 mmol/L (21-32) 23 mmol/L (21-32) Anion Gap 10 (6-14) 11 (6-14) Blood Urea Nitrogen 15 mg/dL (7-20) 15 mg/dL (7-20) Creatinine 0.7 mg/dL (0.6-1.0) 0.6 mg/dL (0.6-1.0) Estimated GFR (Cockcroft-Gault) 80.9 96.7 Glucose Level 217 mg/dL (70-99) 200 mg/dL (70-99) Calcium Level 9.0 mg/dL (8.5-10.1) 8.8 mg/dL (8.5-10.1) Glucose (Fingerstick) 228 mg/dL (70-99) Test 03/30/17 07:34 03/30/17 11:35 03/30/17 16:42 Glucose (Fingerstick) 159 mg/dL (70-99) 258 mg/dL (70-99) 157 mg/dL (70-99) CONSTANTINO TO MD Mar 30, 2017 17:12
[2017-03-30] MEDS: ENOXAPARIN 40 MG/0.4 ML SYRINGE. SQ SCH (18:26)
[2017-03-30] MEDS: hydrALAZINE 20 MG/ML VIAL. IVP PRN (20:38)
[2017-03-30] MEDS: LATANOPROST 0.005% OPHTH SOLUTION 2.5ML BOTTLE. OU SCH (20:39)
[2017-03-30] MEDS: INSULIN DETEMIR 300 UNITS/3 ML INSULN.PEN. SQ SCH (20:53)
[2017-03-30] MEDS: ACETAMINOPHEN 500 MG TABLET PO PRN (23:32)
[2017-03-31] VITALS (12 sets, daily range): BP systolic 128–178; BP diastolic 48–67
[2017-03-31] MEDS: oxyCODONE IR 5 MG TABLET PO PRN ×3 (03:46→20:24)
[2017-03-31] MEDS ORDERED: ONDANSETRON PF 4 MG/2 ML VIAL. IV PRN ×2 (07:00→10:15)
[2017-03-31] MEDS ORDERED: fentaNYL PF VIAL 100 MCG/2 ML VIAL IV PRN ×3 (07:00→10:15)
[2017-03-31] MEDS ORDERED: LIDOCAINE 1% 1 ML SYRINGE. ID PRN ×2 (07:00→10:15)
[2017-03-31] MEDS ORDERED: PROCHLORPERAZINE 10 MG/2 ML VIAL. IV PRN ×2 (07:00→10:15)
[2017-03-31] MEDS ORDERED: IV RINGERS,LACTATED 1000ML 1,000 ML IV SCH ×2 (07:00→10:05)
[2017-03-31] MEDS: IV RINGERS,LACTATED 1000ML 1,000 ML IV SCH ×2 (08:00→15:00)
[2017-03-31] MEDS: INSULIN ASPART 300 UNITS/3 ML INSULN.PEN SQ SCH ×3 (08:00→17:06)
[2017-03-31] MEDS: glipiZIDE 5 MG TABLET PO SCH ×2 (08:00→17:02)
--- NOTE | 2017-03-31 08:00 | PDOC ---
PROGRESS NOTES Subjective Subjective Problems overnight: no acute events. no nausea, vomiting, numbness, tingling, chest pain, shortness of breath, calf pain, or constipation. Objective Vital Signs Vital Signs Date Time Temp Pulse Resp B/P (MAP) Pulse Ox O2 Delivery O2 Flow Rate FiO2 03/31/17 07:21 97.4 70 18 186/74 96 Room Air 97.4 Physical Exam LEFT LOWER EXTREMITY in splint. neurovascularly intact distally to distal exposed toes, minimal swelling. no blistering over the skin. mild left knee effusion, extensor mechanism intact Labs Laboratory Tests Test 03/29/17 17:37 03/29/17 18:00 03/29/17 20:04 03/29/17 20:51 Urine Collection Type Unknown Urine Color Yellow Urine Clarity Cloudy Urine pH 6.0 Urine Specific [place] 1.015 Urine Protein Negative mg/dL (NEG-TRACE) Urine Glucose (UA) 100 mg/dL (NEG) Urine Ketones (Stick) Negative mg/dL (NEG) Urine Blood Negative (NEG) Urine Nitrite Negative (NEG) Urine Bilirubin Negative (NEG) Urine Urobilinogen Dipstick 0.2 mg/dL (0.2 mg/dL) Urine Leukocyte Esterase Moderate (NEG) Urine RBC Occ /HPF (0-2) Urine WBC 20-40 /HPF (0-4) Urine Squamous Epithelial Cells Mod /LPF Urine Bacteria Many /HPF (0-FEW) Urine Mucus Slight /LPF Urine Yeast Present /HPF White Blood Count 13.2 x10^3/uL (4.0-11.0) Red Blood Count 4.03 x10^6/uL (3.50-5.40) Hemoglobin 12.2 g/dL (12.0-15.5) Hematocrit 36.4 % (36.0-47.0) Mean Corpuscular Volume 91 fL (79-100) Mean Corpuscular Hemoglobin 30 pg (25-35) Mean Corpuscular Hemoglobin Concent 34 g/dL (31-37) Red Cell Distribution Width 13.0 % (11.5-14.5) Platelet Count 288 x10^3/uL (140-400) Neutrophils (%) (Auto) 80 % (31-73) Lymphocytes (%) (Auto) 13 % (24-48) Monocytes (%) (Auto) 5 % (0-9) Eosinophils (%) (Auto) 1 % (0-3) Basophils (%) (Auto) 0 % (0-3) Neutrophils # (Auto) 10.6 x10^3uL (1.8-7.7) Lymphocytes # (Auto) 1.7 x10^3/uL (1.0-4.8) Monocytes # (Auto) 0.7 x10^3/uL (0.0-1.1) Eosinophils # (Auto) 0.1 x10^3/uL (0.0-0.7) Basophils # (Auto) 0.0 x10^3/uL (0.0-0.2) Prothrombin Time 13.5 SEC (11.7-14.0) Prothromb Time International Ratio 1.1 (0.8-1.1) Activated Partial Thromboplast Time 27 SEC (24-38) Sodium Level 138 mmol/L (136-145) Potassium Level 3.8 mmol/L (3.5-5.1) Chloride Level 102 mmol/L (98-107) Carbon Dioxide Level 26 mmol/L (21-32) Anion Gap 10 (6-14) Blood Urea Nitrogen 15 mg/dL (7-20) Creatinine 0.7 mg/dL (0.6-1.0) Estimated GFR (Cockcroft-Gault) 80.9 Glucose Level 217 mg/dL (70-99) Calcium Level 9.0 mg/dL (8.5-10.1) 25-Hydroxy Vitamin D Total 23.2 ng/mL (30.0-100.0) Nasal Screen MRSA (PCR) Negative (Negative) Glucose (Fingerstick) 228 mg/dL (70-99) Test 03/30/17 05:00 03/30/17 07:34 03/30/17 11:35 03/30/17 16:42 White Blood Count 12.0 x10^3/uL (4.0-11.0) Red Blood Count 3.61 x10^6/uL (3.50-5.40) Hemoglobin 10.8 g/dL (12.0-15.5) Hematocrit 32.4 % (36.0-47.0) Mean Corpuscular Volume 90 fL (79-100) Mean Corpuscular Hemoglobin 30 pg (25-35) Mean Corpuscular Hemoglobin Concent 33 g/dL (31-37) Red Cell Distribution Width 12.9 % (11.5-14.5) Platelet Count 261 x10^3/uL (140-400) Neutrophils (%) (Auto) 82 % (31-73) Lymphocytes (%) (Auto) 13 % (24-48) Monocytes (%) (Auto) 5 % (0-9) Eosinophils (%) (Auto) 0 % (0-3) Basophils (%) (Auto) 0 % (0-3) Neutrophils # (Auto) 9.8 x10^3uL (1.8-7.7) Lymphocytes # (Auto) 1.5 x10^3/uL (1.0-4.8) Monocytes # (Auto) 0.6 x10^3/uL (0.0-1.1) Eosinophils # (Auto) 0.0 x10^3/uL (0.0-0.7) Basophils # (Auto) 0.0 x10^3/uL (0.0-0.2) Sodium Level 136 mmol/L (136-145) Potassium Level 3.7 mmol/L (3.5-5.1) Chloride Level 102 mmol/L (98-107) Carbon Dioxide Level 23 mmol/L (21-32) Anion Gap 11 (6-14) Blood Urea Nitrogen 15 mg/dL (7-20) Creatinine 0.6 mg/dL (0.6-1.0) Estimated GFR (Cockcroft-Gault) 96.7 Glucose Level 200 mg/dL (70-99) Calcium Level 8.8 mg/dL (8.5-10.1) 25-Hydroxy Vitamin D Total 23.1 ng/mL (30.0-100.0) Glucose (Fingerstick) 159 mg/dL (70-99) 258 mg/dL (70-99) 157 mg/dL (70-99) Test 03/30/17 20:49 Glucose (Fingerstick) 183 mg/dL (70-99) Laboratory Tests Test 03/30/17 11:35 03/30/17 16:42 03/30/17 20:49 Glucose (Fingerstick) 258 mg/dL (70-99) 157 mg/dL (70-99) 183 mg/dL (70-99) Imaging xrays of the left ankle reveal a bimall ankle fracture Assessment Problems: (1) Ankle fracture, left Plan Plan of Care Plan for open reduction internal fixation today npo since midnight non-weight bearing on left lower extremity will be in a splint. will need placement. Problem Qualifiers (1) Ankle fracture, left: Encounter type: initial encounter Fracture type: closed Qualified Codes: S82.892A - Other fracture of left lower leg, initial encounter for closed fracture ALONZO TORREZ MD Mar 31, 2017 08:00
[2017-03-31] MEDS ORDERED: PROPOFOL 20 ML IV ONE (08:06)
[2017-03-31] MEDS ORDERED: fentaNYL PF VIAL 100 MCG/2 ML VIAL ONE (08:09)
[2017-03-31] MEDS ORDERED: ePHEDrine PF IN SALINE 50 MG/5 ML DISP.SYRIN IV ONE (08:30)
[2017-03-31] MEDS ORDERED: BUPIVACAINE-EPI 0.25%-1:200000 50 ML VIAL. ONE (08:33)
[2017-03-31] MEDS ORDERED: ONDANSETRON PF 4 MG/2 ML VIAL. ONE (08:38)
--- NOTE | 2017-03-31 08:53 | ACF ---
Admit Criteria Forms Admit Criteria Forms Admit Criteria Forms MUSCULOSKELETAL DISEASE GRG Clinical Indications for Admission to Inpatient Care (Place 'X' for any and all applicable criteria): Hospital admission is needed for appropriate care of the patient because of 1 or more of the following: [X]I. Fracture, dislocation, or other musculoskeletal injury requiring inpatient care(medical) as indicated by 1 or more of the following(4)(5)(6)(7) [ ]a) Vertebral fracture requiring observation for instability or neurologic compromise (8) [ ]b) Compartment syndrome (proven or cannot be ruled out during observation level of care) (9) [ ]c) Limb-threatening injury [ ]d) Major injury requiring inpatient stabilization such as traction initiation or external fixation before internal fixation or closure of complex or open fracture [ ]e) Major injury requiring inpatient treatment after emergency or observation level care (as appropriate) [X]f) Severe pain requiring acute inpatient management [ ]g) Injury with suspicion of abuse or neglect (eg., child, dependent elderly) [ ]II. Newly diagnosed or suspected bone, joint, or orthopedic device infection (e.g., osteomyelitis, septic arthritis) needing 1 or more of the following(1)(2)(3) [ ]a) IV antibiotics that cannot be initiated in other than inpatient setting (e.g., patient too unstable or home infusion not available) [ ]b) Device removal or replacement [ ]c) Bone or soft tissue debridement [ ]d) Joint drainage (drain placement or repetitive aspirations) [ ]III. Severe rheumatologic disease (e.g., systemic lupus erythematosus, rheumatoid arthritis) with complications or comorbidities (Also use Optimal Recovery Care Criteria or General Recovery Criteria as appropriate on the basis of predominant condition), including 1 or more of the following( 10)(11)(12)(13) [ ]a) Severe infection (e.g., DISASSEMBLER PRODUCT infection, sepsis) (14) [ ]b) Respiratory complications, including 1 or more of the following : [ ]i) Pleural effusion with respiratory compromise [ ]ii) Pulmonary hypertension with congestive failure [ ]iii) Respiratory failure [ ]iv) Pulmonary hemorrhage (15) [ ]c) Hematologic disease, including 1 or more of the following: [ ]i) Coagulopathy with bleeding [ ]ii) Thrombosis with hypercoagulable state [ ]iii) Thrombotic thrombocytopenic purpura [ ]d) Cerebritis with seizures, psychosis, or other severe abnormalities [ ]e) Vertebral destruction with monitoring needed for cervical myelopathy& possible respiratory compromise [ ]f) Exacerbation that requires inpatient treatment (e.g., intravenous immunosuppression) (16) [ ]g) Acute renal failure [ ]h) Cerebritis with seizures, psychosis, Altered mental status, or other neurologic abnormalities [ ]i) Pericardial effusion with tamponade [ ]j) Vertebral destruction, with monitoring needed for cervical myelopathy and possible respiratory compromise [ ]IV. Severe vasculitis with complications or comorbidities (Also use Optimal Recovery Care Criteria General Recovery Criteria as appropriate on the basis of predominant condition), including 1 or more of the following(11)(12)(17)(18)(19)(20) [ ]a) Exacerbation that requires inpatient treatment (e.g., intravenous immunosuppression) (19)(21) [ ]b) Pulmonary hemorrhage (15) [ ]c) DISASSEMBLER PRODUCT vasculitis with seizures, psychosis, Altered mental status that is severe or persistent, or other severe abnormalities (22) [ ]d) Cerebral infarction [ ]e) Gastrointestinal ischemia [ ]f) Gangrene or threatened amputation [ ]g) Renal failure (16) [ ]h) Other significant complications of vasculitis ( eg., tissue or organ ischemia, organ dysfunction ) [ ]V. Severe myopathy as indicated by 1 or more of the following (28)(29) [ ]a) New onset of airway compromise or inability to swallow [ ]b) Respiratory deterioration with observation needed for impending respiratory failure [ ]c) Exacerbation that requires inpatient treatment (e.g., intravenous immunosuppression) [ ]. Severe crystal gout (arthropathy) indicated by 1 or more of the following (23)(24) [ ]a) Severe pain requiring acute inpatient management [ ]b) Exacerbation that requires inpatient treatment (e.g., intravenous treatment) [ ]VII.Rhabdomyolysis and 1 or more of the following (25)(26)(27) [ ]a) Acute renal failure [ ]b) Need for intravenous hydration after emergency or observation level care (as appropriate) [ ]c) Inability to maintain oral hydration [ ]d) Change in mental status [ ]e) Electrolyte abnormality that remains after emergency or observation level care (as appropriate) [ ]VIII Post amputation complication, as indicated by ANY ONE of the following [ ]a) Infection [ ]b) Dehiscence [ ]c) Myodesis failure [ ]IX. Severe pain requiring acute inpatient management due to musculoskeletal condition [ ]X. Musculoskeletal Disease and ALL of the following: [ ]a) Symptom or finding for which emergency and observation care have failed or are not considered appropriate (Use General Criteria: Observation Care as appropriate) [ ]b) Presence of ANY ONE of the following [ ]i) A General Admission Criteria [ ]ii) A Pediatric General Admission Criteria The original [facility] content created by [facility] has been revised. The portions of the content which have been revised are identified through the use of italic text or in bold, and [facility] has neither reviewed nor approved the modified material. All other unmodified content is copyright [facility]. Please see references footnoted in the original [facility] edition 2016 RAJENDRA WILEY Mar 31, 2017 08:53
[2017-03-31] MEDS: GABAPENTIN 100 MG CAPSULE. PO SCH ×3 (09:00→20:23)
[2017-03-31] MEDS ORDERED: LIDOCAINE 2% PF Vial for OR 5 ML VIAL. ONE (09:25)
[2017-03-31] MEDS ORDERED: SEVOFLURANE 61 TO 120 MINUTES. IH ONE (09:26)
--- NOTE | 2017-03-31 10:07 | PDOC ---
BRIEF OPERATIVE NOTE Date: Mar 31, 2017 Pre-Op Diagnosis left bimalleolar ankle fracture Post-Op Diagnosis same Procedure Performed orif bimalleolar ankle fracture Surgeon Alonzo Torrez MD Anesthesia Type: General Blood Loss 10 cc Specimens Obtained none Complications none Additional Remarks tourniquet time 49 minutes ALONZO TORREZ MD Mar 31, 2017 10:07
[2017-03-31] MEDS: fentaNYL PF VIAL 100 MCG/2 ML VIAL IV PRN ×4 (10:08→11:06)
--- NOTE | 2017-03-31 10:34 | RAD ---
Indication postop. AP and lateral views of the left ankle were obtained and are compared to a study 2 days previously. Previously identified bimalleolar fracture has been internally fixed. A plate and screws fix the lateral malleolar fracture. 2 screws fix the medial malleolar fracture fragment. No complication is seen. Splint or cast is noted. IMPRESSION: ORIF of previously identified bimalleolar fracture. No unexpected finding seen
[2017-03-31] MEDS: LOSARTAN POTASSIUM 25 MG TABLET. PO SCH (11:32)
[2017-03-31] MEDS: PRIMIDONE 250 MG TABLET PO SCH ×2 (11:33→20:23)
[2017-03-31] MEDS: MULTIVITAMIN with MINERAL TABLET. PO SCH (11:33)
[2017-03-31] MEDS: PANTOPRAZOLE 40 MG TABLET.DR. PO SCH (11:33)
[2017-03-31] MEDS: FENOFIBRATE 54 MG TABLET. PO SCH (11:33)
[2017-03-31] MEDS: METOPROLOL TART IMMED RELEASE 50 MG TABLET. PO SCH (11:33)
[2017-03-31] MEDS: CHOLECALCIFEROL (VITAMIN D3) 1,000 UNIT TABLET PO SCH (11:33)
[2017-03-31 12:23] LABS: BASO % 1 % (0-3); EOS % 0 % (0-3); HEMATOCRIT 32.7 % (36.0-47.0); HEMOGLOBIN 11.2 g/dL (12.0-15.5); LYMPH % 11 % (24-48); MEAN CORPUSCULAR HEMOGLOBIN 31 pg (25-35); MEAN CORPUSCULAR HGB CONC 34 g/dL (31-37); MEAN CORPUSCULAR VOLUME 90 fL (79-100); MONO % 6 % (0-9); NEUT % 83 % (31-73); PLATELET COUNT 243 x10^3/uL (140-400); RED BLOOD COUNT 3.66 x10^6/uL (3.50-5.40); RED CELL DISTRIBUTION WIDTH 13.1 % (11.5-14.5); WHITE BLOOD COUNT 9.1 x10^3/uL (4.0-11.0)
--- NOTE | 2017-03-31 13:25 | PDOC ---
PROGRESS NOTES Chief Complaint Chief Complaint Fall with L ankle fx ASSESSMENT AND PLAN: 1. L ankle fx: ORIF this AM by Dr Joseph. 2. Pain control: adequate. 3. UTI: empiric ceftriax (single dose should be sufficient). culture pending 4. Hypertension: well controlled on low dose Cozaar. 5. DM2: fairly well controled on home glipizide. ISS added 6. CHF: by pt report; no clinical sx, no home meds 7. Prophylaxis: lovenox History of Present Illness History of Present Illness pain well controlled. no other c/o Vitals Vitals Vital Signs Date Time Temp Pulse Resp B/P (MAP) Pulse Ox O2 Delivery O2 Flow Rate FiO2 03/31/17 12:45 97.5 67 18 159/51 (87) 95 Room Air 97.5 03/31/17 11:39 2.0 Physical Exam General: Alert, Oriented X3, Cooperative, No acute distress Heart: Regular rate Lungs: Clear Abdomen: Normal bowel sounds, Soft, No tenderness Extremities: Other (cast L distal LE) Skin: No rashes Labs LABS Laboratory Tests Test 03/30/17 16:42 03/30/17 20:49 03/31/17 08:09 03/31/17 10:25 Glucose (Fingerstick) 157 mg/dL (70-99) 183 mg/dL (70-99) 176 mg/dL (70-99) 174 mg/dL (70-99) Test 03/31/17 11:28 03/31/17 12:10 Glucose (Fingerstick) 215 mg/dL (70-99) White Blood Count 9.1 x10^3/uL (4.0-11.0) Red Blood Count 3.66 x10^6/uL (3.50-5.40) Hemoglobin 11.2 g/dL (12.0-15.5) Hematocrit 32.7 % (36.0-47.0) Mean Corpuscular Volume 90 fL (79-100) Mean Corpuscular Hemoglobin 31 pg (25-35) Mean Corpuscular Hemoglobin Concent 34 g/dL (31-37) Red Cell Distribution Width 13.1 % (11.5-14.5) Platelet Count 243 x10^3/uL (140-400) Neutrophils (%) (Auto) 83 % (31-73) Lymphocytes (%) (Auto) 11 % (24-48) Monocytes (%) (Auto) 6 % (0-9) Eosinophils (%) (Auto) 0 % (0-3) Basophils (%) (Auto) 1 % (0-3) Neutrophils # (Auto) 7.5 x10^3uL (1.8-7.7) Lymphocytes # (Auto) 1.0 x10^3/uL (1.0-4.8) Monocytes # (Auto) 0.5 x10^3/uL (0.0-1.1) Eosinophils # (Auto) 0.0 x10^3/uL (0.0-0.7) Basophils # (Auto) 0.0 x10^3/uL (0.0-0.2) CONSTANTINO TO MD Mar 31, 2017 13:25
[2017-03-31] MEDS: hydrALAZINE 20 MG/ML VIAL. IVP PRN ×2 (15:01→21:45)
--- NOTE | 2017-03-31 17:54 | PDOC4 ---
Operative Note Operative Note DATE OF OPERATION:03/31/2017 PREOPERATIVE DIAGNOSIS:Bimalleolar fracture left ankle ICD10: S82.842A POSTOPERATIVE DIAGNOSIS: same OPERATION PERFORMED: Open reduction and internal fixation of bimalleolar ankle fracture, CPT 17604 SURGEON: Alonzo Torrez MD RELAY ASSEMBLER: none ANESTHESIA: General ESTIMATED BLOOD LOSS:10 cc IMPLANTS: Katharine Variax 3 hole distal fibula locking plate, 2.7 mm interfragmentary screw, 4.0 mm cannulated screws 50 mm x 2 Total tourniquet time: 49 minutes INDICATION: 76 year old femaleslipped and fell down sustaining a fracture to the left ankle.She had a bimalleolar fracture.After the risks and benefits of surgery were explained, she was taken to surgery for operative stabilization of the fracture today. DESCRIPTION OF PROCEDURE: The patient was identified, marked, and the procedure was reconfirmed by myself prior to taking them to the operating room. IV antibiotics were given preoperatively. The patient was positioned appropriately supine on the operating bed, and a timeout was performed prior to prepping and draping. A non-sterile tourniquet was applied to the left thigh. The leg was prepped and draped in a standard sterile fashion. After exsanguinating the leg with an eschmarch, the tourniquet was inflated to 250 mmHg. First I performed an exam under fluoroscopy, testing the ankle mortise. The ankle was found to be grossly unstable with stress. Then I approached the fibula directly centered on the fracture site with a lateral approach longitudinally. Dissection was carried down identifying the proximal portion of the peroneal tendon. I dissected just anterior to that muscle belly and exposed the fibula fracture longitudinally. This was basically a long oblique fracture in the distal fibula. The fracture site was debrided of hematoma, and I brought the fracture out to length and held the reduction with AO clamps until I obtained good overall position and advent of length both by direct visualization and fluoroscopic guidance. I was able to place a lag screw across the fracture site. I then placed a 3-hole distal fibular locking plate across the area. I placed screws proximal to the fracture and filled the locking holes distal to the fracture. The fracture was stabilized at this point and xrays were taken to reveal near anatomic alignment on both AP and Lateral views. The fibula was out to length on the mortise view of the ankle. I performed an anteromedial approach to the medial malleolus, and dissected down protecting the saphenous vein and nerve structures anteriorly.Two k wires were placed into the medial malleolus. I was then was able to overdrill and stabilize the fracture nicely with two 4.0 cannulated screws of 50 mm length. There was good rotational stability as well. Anatomic reduction was obtained. At that time I approached the lateral side of the joint and performed a cotton test with a clamp under fluoro. The syndesmosis was found to be stable. Overall appearance of the ankle mortise was anatomic at that point. I then irrigated the wounds, closed the deep tissues with 2-0 Vicryl laterally and medially the skin was closed with 3-0 monocryl and eldon. The incisions were covered with sterile dressings, and the patient was placed in a well padded plaster splint The patient tolerated the procedure well. There were no complications. They were taken to recovery in good condition postoperatively. Plan: The patient is to remain non-weightbearing on the LLE. They will follow up in my office in 7-10 days for suture/ staple removal. ALONZO TORREZ MD Mar 31, 2017 17:54
[2017-03-31] MEDS: LATANOPROST 0.005% OPHTH SOLUTION 2.5ML BOTTLE. OU SCH (20:23)
[2017-03-31] MEDS: ENOXAPARIN 40 MG/0.4 ML SYRINGE. SQ SCH (21:44)
[2017-03-31] MEDS: INSULIN DETEMIR 300 UNITS/3 ML INSULN.PEN. SQ SCH (21:50)
[2017-04-01] MEDS: ACETAMINOPHEN 500 MG TABLET PO PRN (00:09)
[2017-04-01] MEDS: fentaNYL PF VIAL 100 MCG/2 ML VIAL IV PRN ×3 (00:09→08:31)
[2017-04-01] MEDS: oxyCODONE IR 5 MG TABLET PO PRN ×5 (00:09→21:04)
[2017-04-01 03:00] VITALS: BP 146/58
[2017-04-01 07:00] VITALS: BP 164/46
[2017-04-01] MEDS: PRIMIDONE 250 MG TABLET PO SCH (08:35)
[2017-04-01] MEDS: PANTOPRAZOLE 40 MG TABLET.DR. PO SCH (08:35)
[2017-04-01] MEDS: LOSARTAN POTASSIUM 25 MG TABLET. PO SCH ×2 (08:36→21:05)
[2017-04-01] MEDS: GABAPENTIN 100 MG CAPSULE. PO SCH ×3 (08:36→21:07)
[2017-04-01] MEDS: MULTIVITAMIN with MINERAL TABLET. PO SCH (08:37)
[2017-04-01] MEDS: FENOFIBRATE 54 MG TABLET. PO SCH (08:37)
[2017-04-01] MEDS: glipiZIDE 5 MG TABLET PO SCH ×2 (08:37→16:48)
[2017-04-01] MEDS: METOPROLOL TART IMMED RELEASE 50 MG TABLET. PO SCH (08:37)
[2017-04-01] MEDS: CHOLECALCIFEROL (VITAMIN D3) 1,000 UNIT TABLET PO SCH (08:37)
[2017-04-01] MEDS: INSULIN ASPART 300 UNITS/3 ML INSULN.PEN SQ SCH ×3 (08:50→16:56)
[2017-04-01] MEDS ORDERED: POLYETHYLENE GLYCOL 3350 17 GM PACKET. PO PRN (10:00)
[2017-04-01] MEDS: DOCUSATE SODIUM 100 MG CAPSULE. PO SCH ×2 (10:01→21:05)
[2017-04-01] MEDS: BISACODYL 10 MG SUPP.RECT. PR PRN (10:01)
[2017-04-01 11:44] VITALS: BP 184/60
--- NOTE | 2017-04-01 11:49 | PDOC ---
PROGRESS NOTES Chief Complaint Chief Complaint Fall with L ankle fx ASSESSMENT AND PLAN: 1. L ankle fx: ORIF on 03/[address] Joseph. activity as per surg team 2. Pain control: adequate. 3. UTI: empiric ceftriax stopped, start diflucan: 100K CFU yeast 4. Hypertension: well controlled on low dose Cozaar. 5. DM2: fairly well controlled on home glipizide. ISS added 6. CHF: by pt report; no clinical sx, no home meds 7. Prophylaxis: lovenox 8. Dispo: to rehab in a couple of days History of Present Illness History of Present Illness pain well controlled with oral meds. constipated this AM, had to disimpact herself. Vitals Vitals Vital Signs Date Time Temp Pulse Resp B/P (MAP) Pulse Ox O2 Delivery O2 Flow Rate FiO2 04/01/17 10:45 91 Room Air 04/01/17 08:37 91 164/46 04/01/17 07:00 99.1 18 99.1 03/31/17 11:39 2.0 Physical Exam General: Alert, Oriented X3, Cooperative, No acute distress Heart: Regular rate Lungs: Clear Abdomen: Normal bowel sounds, Soft, No tenderness Extremities: Other (cast L distal LE) Skin: No rashes Labs LABS Laboratory Tests Test 03/31/17 12:10 03/31/17 16:06 03/31/17 20:58 04/01/17 07:18 White Blood Count 9.1 x10^3/uL (4.0-11.0) Red Blood Count 3.66 x10^6/uL (3.50-5.40) Hemoglobin 11.2 g/dL (12.0-15.5) Hematocrit 32.7 % (36.0-47.0) Mean Corpuscular Volume 90 fL (79-100) Mean Corpuscular Hemoglobin 31 pg (25-35) Mean Corpuscular Hemoglobin Concent 34 g/dL (31-37) Red Cell Distribution Width 13.1 % (11.5-14.5) Platelet Count 243 x10^3/uL (140-400) Neutrophils (%) (Auto) 83 % (31-73) Lymphocytes (%) (Auto) 11 % (24-48) Monocytes (%) (Auto) 6 % (0-9) Eosinophils (%) (Auto) 0 % (0-3) Basophils (%) (Auto) 1 % (0-3) Neutrophils # (Auto) 7.5 x10^3uL (1.8-7.7) Lymphocytes # (Auto) 1.0 x10^3/uL (1.0-4.8) Monocytes # (Auto) 0.5 x10^3/uL (0.0-1.1) Eosinophils # (Auto) 0.0 x10^3/uL (0.0-0.7) Basophils # (Auto) 0.0 x10^3/uL (0.0-0.2) Glucose (Fingerstick) 206 mg/dL (70-99) 208 mg/dL (70-99) 182 mg/dL (70-99) Test 04/01/17 11:19 Glucose (Fingerstick) 304 mg/dL (70-99) CONSTANTINO TO MD Apr 01, 2017 11:49
[2017-04-01] MEDS: FLUCONAZOLE 200MG/100ML PREMIX 100 ML IV SCH (12:24)
[2017-04-01] MEDS: POLYETHYLENE GLYCOL 3350 17 GM PACKET. PO SCH (12:24)
[2017-04-01] MEDS: hydrALAZINE 20 MG/ML VIAL. IVP PRN ×3 (12:28→23:19)
[2017-04-01 15:44] VITALS: BP 183/74
[2017-04-01] MEDS ORDERED: fentaNYL PF VIAL 100 MCG/2 ML VIAL IV PRN (16:15)
--- NOTE | 2017-04-01 16:31 | PDOC ---
PROGRESS NOTES Subjective Subjective Problems overnight: the patient was constipated Objective Vital Signs Vital Signs Date Time Temp Pulse Resp B/P (MAP) Pulse Ox O2 Delivery O2 Flow Rate FiO2 04/01/17 15:44 100.0 80 18 183/74 (110) 94 Room Air 100.0 04/01/17 12:09 2.0 Physical Exam lle in splint. nvi distally. mild knee effusion. Labs Laboratory Tests Test 03/30/17 16:42 03/30/17 20:49 03/31/17 08:09 03/31/17 10:25 Glucose (Fingerstick) 157 mg/dL (70-99) 183 mg/dL (70-99) 176 mg/dL (70-99) 174 mg/dL (70-99) Test 03/31/17 11:28 03/31/17 12:10 03/31/17 16:06 03/31/17 20:58 Glucose (Fingerstick) 215 mg/dL (70-99) 206 mg/dL (70-99) 208 mg/dL (70-99) White Blood Count 9.1 x10^3/uL (4.0-11.0) Red Blood Count 3.66 x10^6/uL (3.50-5.40) Hemoglobin 11.2 g/dL (12.0-15.5) Hematocrit 32.7 % (36.0-47.0) Mean Corpuscular Volume 90 fL (79-100) Mean Corpuscular Hemoglobin 31 pg (25-35) Mean Corpuscular Hemoglobin Concent 34 g/dL (31-37) Red Cell Distribution Width 13.1 % (11.5-14.5) Platelet Count 243 x10^3/uL (140-400) Neutrophils (%) (Auto) 83 % (31-73) Lymphocytes (%) (Auto) 11 % (24-48) Monocytes (%) (Auto) 6 % (0-9) Eosinophils (%) (Auto) 0 % (0-3) Basophils (%) (Auto) 1 % (0-3) Neutrophils # (Auto) 7.5 x10^3uL (1.8-7.7) Lymphocytes # (Auto) 1.0 x10^3/uL (1.0-4.8) Monocytes # (Auto) 0.5 x10^3/uL (0.0-1.1) Eosinophils # (Auto) 0.0 x10^3/uL (0.0-0.7) Basophils # (Auto) 0.0 x10^3/uL (0.0-0.2) Test 04/01/17 07:18 04/01/17 11:19 Glucose (Fingerstick) 182 mg/dL (70-99) 304 mg/dL (70-99) Laboratory Tests Test 03/31/17 20:58 04/01/17 07:18 04/01/17 11:19 Glucose (Fingerstick) 208 mg/dL (70-99) 182 mg/dL (70-99) 304 mg/dL (70-99) Imaging xrays of the left ankle reveals well reduced ankle fracture, hardware in place. Assessment Assessment POD# 1, S/P orif left ankle fracture Problems: (1) Ankle fracture, left Plan Plan of Care The patient is currently doing well. can work with pt, nwb lle pain control dvt ppx bowel regimen follow up in my office in 7-10 days for staple removal Problem Qualifiers (1) Ankle fracture, left: Encounter type: initial encounter Fracture type: closed Qualified Codes: S82.892A - Other fracture of left lower leg, initial encounter for closed fracture ALONZO TORREZ MD Apr 01, 2017 16:31
[2017-04-01 19:05] VITALS: BP 152/45
[2017-04-01] MEDS: PRIMIDONE 250 MG PO SCH (21:04)
[2017-04-01] MEDS: ENOXAPARIN 40 MG/0.4 ML SYRINGE. SQ SCH (21:06)
[2017-04-01] MEDS: LATANOPROST 0.005% OPHTH SOLUTION 2.5ML BOTTLE. OU SCH (21:06)
[2017-04-01] MEDS: INSULIN DETEMIR 300 UNITS/3 ML INSULN.PEN. SQ SCH (21:08)
[2017-04-01 23:05] VITALS: BP 195/60
[2017-04-02] VITALS (7 sets, daily range): BP systolic 107–183; BP diastolic 52–59
[2017-04-02] MEDS: oxyCODONE IR 5 MG TABLET PO PRN ×3 (07:28→19:27)
[2017-04-02] MEDS: PANTOPRAZOLE 40 MG TABLET.DR. PO SCH (08:24)
[2017-04-02] MEDS: GABAPENTIN 100 MG CAPSULE. PO SCH ×3 (08:24→20:59)
[2017-04-02] MEDS: FENOFIBRATE 54 MG TABLET. PO SCH (08:25)
[2017-04-02] MEDS: glipiZIDE 5 MG TABLET PO SCH ×2 (08:25→16:57)
[2017-04-02] MEDS: CHOLECALCIFEROL (VITAMIN D3) 1,000 UNIT TABLET PO SCH (08:25)
[2017-04-02] MEDS: DOCUSATE SODIUM 100 MG CAPSULE. PO SCH ×2 (08:25→20:59)
[2017-04-02] MEDS: MULTIVITAMIN with MINERAL TABLET. PO SCH (08:25)
[2017-04-02] MEDS: METOPROLOL TART IMMED RELEASE 50 MG TABLET. PO SCH (08:25)
[2017-04-02] MEDS: PRIMIDONE 250 MG PO SCH ×2 (08:26→21:00)
[2017-04-02] MEDS: POLYETHYLENE GLYCOL 3350 17 GM PACKET. PO SCH (08:26)
[2017-04-02] MEDS: INSULIN ASPART 300 UNITS/3 ML INSULN.PEN SQ SCH ×3 (08:35→17:01)
[2017-04-02] MEDS: fentaNYL PF VIAL 100 MCG/2 ML VIAL IV PRN ×3 (08:38→21:17)
--- NOTE | 2017-04-02 10:56 | PDOC ---
PROGRESS NOTES Chief Complaint Chief Complaint Fall with L ankle fx ASSESSMENT AND PLAN: 1. L ankle fx: ORIF on 03/[address] Joseph. activity as per surg team 2. Pain control: adequate. 3. UTI: empiric ceftriaxone stopped, start Diflucan: 100K CFU yeast 4. Hypertension: well controlled on low dose Cozaar. 5. DM2: fairly well controlled on home glipizide. SSI 6. CHF: by pt report; no clinical sx, no home meds 7. Prophylaxis: lovenox 8. Dispo: to rehab in a couple of days, on Tuesday. D/W History of Present Illness History of Present Illness pain well controlled with oral meds. Vitals Vitals Vital Signs Date Time Temp Pulse Resp B/P (MAP) Pulse Ox O2 Delivery O2 Flow Rate FiO2 04/02/17 09:08 16 93 Room Air 04/02/17 08:38 2.0 04/02/17 08:25 100 107/53 04/02/17 07:00 97.3 97.3 Physical Exam General: Alert, Oriented X3, Cooperative, No acute distress Heart: Regular rate Lungs: Clear Abdomen: Normal bowel sounds, Soft, No tenderness Extremities: Other (cast L distal LE) Skin: No rashes Labs LABS Laboratory Tests Test 04/01/17 11:19 04/01/17 16:24 04/01/17 20:21 04/02/17 07:32 Glucose (Fingerstick) 304 mg/dL (70-99) 190 mg/dL (70-99) 245 mg/dL (70-99) 218 mg/dL (70-99) Assessment and Plan Assessmemt and Plan Problems Medical Problems: (1) Ankle fracture, left Status: Acute Problems: Comment Review of Relevant I have reviewed the following items silvestre (where applicable) has been applied. Labs Laboratory Tests Test 03/31/17 11:28 03/31/17 12:10 03/31/17 16:06 03/31/17 20:58 Glucose (Fingerstick) 215 mg/dL (70-99) 206 mg/dL (70-99) 208 mg/dL (70-99) White Blood Count 9.1 x10^3/uL (4.0-11.0) Red Blood Count 3.66 x10^6/uL (3.50-5.40) Hemoglobin 11.2 g/dL (12.0-15.5) Hematocrit 32.7 % (36.0-47.0) Mean Corpuscular Volume 90 fL (79-100) Mean Corpuscular Hemoglobin 31 pg (25-35) Mean Corpuscular Hemoglobin Concent 34 g/dL (31-37) Red Cell Distribution Width 13.1 % (11.5-14.5) Platelet Count 243 x10^3/uL (140-400) Neutrophils (%) (Auto) 83 % (31-73) Lymphocytes (%) (Auto) 11 % (24-48) Monocytes (%) (Auto) 6 % (0-9) Eosinophils (%) (Auto) 0 % (0-3) Basophils (%) (Auto) 1 % (0-3) Neutrophils # (Auto) 7.5 x10^3uL (1.8-7.7) Lymphocytes # (Auto) 1.0 x10^3/uL (1.0-4.8) Monocytes # (Auto) 0.5 x10^3/uL (0.0-1.1) Eosinophils # (Auto) 0.0 x10^3/uL (0.0-0.7) Basophils # (Auto) 0.0 x10^3/uL (0.0-0.2) Test 04/01/17 07:18 04/01/17 11:19 04/01/17 16:24 04/01/17 20:21 Glucose (Fingerstick) 182 mg/dL (70-99) 304 mg/dL (70-99) 190 mg/dL (70-99) 245 mg/dL (70-99) Test 04/02/17 07:32 Glucose (Fingerstick) 218 mg/dL (70-99) Laboratory Tests Test 04/01/17 11:19 04/01/17 16:24 04/01/17 20:21 04/02/17 07:32 Glucose (Fingerstick) 304 mg/dL (70-99) 190 mg/dL (70-99) 245 mg/dL (70-99) 218 mg/dL (70-99) Microbiology 03/29/17 Urine Culture - Final, Complete 03/29/17 Urine Culture Result 1 (RIC) - Final, Complete 03/29/17 Urine Culture Result 2 (RIC) - Final, Complete Medications Current Medications Fentanyl Citrate (Fentanyl 2ml Vial) 25 mcg PRN Q15MIN PRN IV PAIN GREATER THAN 3/10 Last administered on 03/29/17 18:13; Start 03/29/17 at 18:00; Stop 03/30 at 15:06; Status DC Ondansetron HCl (Zofran) 4 mg PRN Q8HRS PRN IV NAUSEA/VOMITING; Start 03/29/17 at 18:15; Stop 03/29/17 at 19:37; Status DC Fentanyl Citrate (Fentanyl 2ml Vial) 25 mcg PRN Q1HR PRN IV PAIN Last administered on 03/30/17 14:06; Start 03/29/17 at 18:15; Stop 03/30/17 at 16:07; Status DC Ondansetron HCl (Zofran) 4 mg PRN Q6HRS PRN IV NAUSEA/VOMITING; Start 03/29/17 at 19:34; Stop 03/30/17 at 19:33; Status DC Hydralazine HCl (Apresoline) 10 mg PRN Q4HRS PRN IVP ELEVATED BP, SEE COMMENTS Last administered on 04/01/17 23:19; Start 03/29/17 at 19:45 Enoxaparin Sodium (Lovenox 40mg Syringe) 40 mg Q24H SQ Last administered on 04/01 21:06; Start 03/29/17 at 19:45 Famotidine (Pepcid) 20 mg BID IVP Last administered on 03/30/17 09:00; Start at 21:00; Stop 03/30/17 at 17:16; Status DC Acetaminophen (Tylenol) 500 mg PRN Q6HRS PRN PO MILD PAIN / TEMP Last administered on 04/01/17 00:09; Start 03/29/17 at 19:45 Insulin Aspart (NovoLOG) 0-7 UNITS TIDWMEALS SQ ; Start 03/30/17 at 08:00; Stop 03/30/17 at 08:00; Status DC Dextrose (Dextrose 50%-Water Syringe) 12.5 gm PRN Q15MIN PRN IV SEE COMMENTS; Start 03/29/17 at 19:45; Status Cancel Insulin Aspart (NovoLOG) 0-7 UNITS TIDWMEALS SQ Last administered on 04/02/17 08:35; Start 03/30/17 at 08:00 Dextrose (Dextrose 50%-Water Syringe) 12.5 gm PRN Q15MIN PRN IV SEE COMMENTS; Start 03/29/17 at 21:15 Insulin Detemir (Levemir) 10 units QHS SQ Last administered on 04/01/17 21:08; Start 03/29/17 at 21:15 Vitamin D (Vitamin D3) 1,000 unit DAILY PO Last administered on 04/02/17 08:25 ; Start 03/30/17 at 09:00 Clopidogrel Bisulfate (Plavix) 75 mg DAILY PO Last administered on 03/30/17 09: 00; Start 03/30/17 at 09:00; Stop 03/30/17 at 17:16; Status DC Famotidine (Pepcid) 20 mg DAILY PO ; Start 03/30/17 at 09:00; Status Cancel Fenofibrate (Lofibra) 54 mg DAILY PO Last administered on 04/02/17 08:25; Start 03/30/17 at 09:00 Gabapentin (Neurontin) 100 mg TID PO Last administered on 04/02/17 08:24; Start 03/30/17 at 09:00 Losartan Potassium (Cozaar) 25 mg DAILY PO Last administered on 04/01/17 08:36 ; Start 03/30/17 at 09:00; Stop 04/01/17 at 17:53; Status DC Primidone (Mysoline) 250 mg BID PO Last administered on 04/01/17 08:35; Start 03/30/17 at 09:00; Stop 04/01/17 at 09:50; Status DC Glipizide (Glucotrol) 10 mg BIDWMEALS PO Last administered on 04/02/17 08:25; Start 03/30/17 at 08:00 Metoprolol Tartrate (Lopressor) 150 mg DAILY PO Last administered on 04/02/17 08:25; Start 03/30/17 at 09:00 Multivitamins (Thera M Plus) 1 tab DAILY PO Last administered on 04/02/17 08: 25; Start 03/30/17 at 09:00 Latanoprost (Xalatan) 1 drop HS OU Last administered on 04/01/17 21:06; Start 03/30/17 at 21:00 Ondansetron HCl (Zofran) 4 mg PRN Q6HRS PRN IV NAUSEA/VOMITING; Start 03/31/17 at 07:00; Stop 03/31/17 at 07:00; Status DC Fentanyl Citrate (Fentanyl 2ml Vial) 25 mcg PRN Q5MIN PRN IV MILD PAIN; Start 03/31/17 at 07:00; Stop 03/31/17 at 07:00; Status DC Fentanyl Citrate (Fentanyl 2ml Vial) 50 mcg PRN Q5MIN PRN IV MODERATE PAIN; Start 03/31/17 at 07:00; Stop 03/31/17 at 07:00; Status DC Ringer's Solution 1,000 ml @ 0 mls/hr Q0M IV ; Start 03/31/17 at 07:00; Stop 03/31/17 at 07:00; Status DC Lidocaine HCl 2 ml PRN 1X PRN ID PRIOR TO IV START; Start 03/31/17 at 07:00; Stop 03/31/17 at 16:51; Status DC Prochlorperazine Edisylate (Compazine) 5 mg PACU PRN PRN IV NAUSEA, MRX1 Last administered on 03/31/17 10:03; Start 03/31/17 at 07:00; Stop 03/31/17 at 16:51; Status DC Oxycodone HCl (Roxicodone) 5 mg Q4HRS PRN PO PAIN Last administered on 07:28; Start 03/30/17 at 16:15 Fentanyl Citrate (Fentanyl 2ml Vial) 25 mcg PRN Q4HRS PRN IV PAIN Last administered on 03/31/17 20:33; Start 03/30/17 at 16:15; Stop 03/31/17 at 23:29; Status DC Pantoprazole Sodium (Protonix) 40 mg DAILYAC PO Last administered on 04/02/17 08:24; Start 03/31/17 at 07:30 Ceftriaxone Sodium 1 gm/ Sodium Chloride 50 ml @ 100 mls/hr Q24H IV Last administered on 03/31/17 18:24; Start 03/30/17 at 18:00; Stop 04/01/17 at 11:47; Status DC Propofol 20 ml @ As Directed STK-MED ONCE IV ; Start 03/31/17 at 08:06; Stop 03/31 at 08:07; Status DC Fentanyl Citrate (Fentanyl 2ml Vial) 100 mcg STK-MED ONCE .ROUTE ; Start at 08:09; Stop 03/31/17 at 08:10; Status DC Cefazolin Sodium/ Dextrose 50 ml @ As Directed STK-MED ONCE IV ; Start 03/31/17 at 08:14; Stop 03/31/17 at 08:15; Status DC Cefazolin Sodium/ Dextrose 50 ml @ 100 mls/hr 1X ONCE IV Last administered on 03/31/17 08:25; Start 03/31/17 at 08:30; Stop 03/31/17 at 08:59; Status DC Ringer's Solution 1,000 ml @ 75 mls/hr [id number] IV Last administered on 15:00; Start 03/31/17 at 08:30; Stop 04/01/17 at 10:50; Status DC Ephedrine Sulfate 50 mg STK-MED ONCE IV ; Start 03/31/17 at 08:30; Stop 03/31/17 at 08:31; Status DC Bupivacaine HCl/ Epinephrine Bitart (Marcaine-Epi 0.25%-[id number]) 50 ml STK-MED ONCE .ROUTE Last administered on 03/31/17 08:51; Start 03/31/17 at 08:33; Stop 03/31/17 at 08:34; Status DC Ondansetron HCl (Zofran) 4 mg STK-MED ONCE .ROUTE ; Start 03/31/17 at 08:38; Stop 03/31/17 at 08:39; Status DC Lidocaine HCl (Lidocaine Pf 2% Vial) 5 ml STK-MED ONCE .ROUTE ; Start 03/31/17 at 09:25; Stop 03/31/17 at 09:26; Status DC Sevoflurane (Ultane) 60 ml STK-MED ONCE IH ; Start 03/31/17 at 09:26; Stop at 09:27; Status DC Ondansetron HCl (Zofran) 4 mg PRN Q6HRS PRN IV NAUSEA/VOMITING; Start 03/31/17 at 10:15; Stop 03/31/17 at 16:51; Status DC Fentanyl Citrate (Fentanyl 2ml Vial) 25 mcg PRN Q5MIN PRN IV MILD PAIN; Start 03/31/17 at 10:15; Stop 03/31/17 at 16:51; Status DC Fentanyl Citrate (Fentanyl 2ml Vial) 50 mcg PRN Q5MIN PRN IV MODERATE PAIN Last administered on 03/31/17 11:06; Start 03/31/17 at 10:15; Stop 03/31/17 at 16: 51; Status DC Ringer's Solution 1,000 ml @ 0 mls/hr Q0M IV ; Start 03/31/17 at 10:05; Stop 03/31/17 at 16:51; Status DC Lidocaine HCl 2 ml PRN 1X PRN ID PRIOR TO IV START; Start 03/31/17 at 10:15; Stop 03/31/17 at 16:51; Status DC Prochlorperazine Edisylate (Compazine) 5 mg PACU PRN PRN IV NAUSEA, MRX1; Start 03/31/17 at 10:15; Stop 03/31/17 at 16:51; Status DC Fentanyl Citrate (Fentanyl 2ml Vial) 25 mcg PRN Q2HRS PRN IV SEVERE PAIN; Start 04/01/17 at 16:15; Stop 04/01/17 at 16:15; Status DC Fentanyl Citrate (Fentanyl 2ml Vial) 25 mcg PRN Q2HRS PRN IV SEVERE PAIN Last administered on 04/02/17 08:38; Start 03/31/17 at 23:45 Non-Formulary Medication 1 ea BID PO Last administered on 04/02/17 08:26; Start 04/01/17 at 21:00 Bisacodyl (Dulcolax Supp) 10 mg PRN DAILY PRN OK CONSTIPATION Last administered on 04/01/17 10:01; Start 04/01/17 at 10:00 Docusate Sodium (Colace) 100 mg BID PO Last administered on 04/02/17 08:25; Start 04/01/17 at 10:00 Polyethylene Glycol (miraLAX PACKET) 17 gm PRN DAILY PRN PO CONSTIPATION; Start 04/01/17 at 10:00; Stop 04/02/17 at 09:00; Status DC Polyethylene Glycol (miraLAX PACKET) 17 gm DAILY PO Last administered on 08:26; Start 04/01/17 at 12:00 Fluconazole/ Sodium Chloride 100 ml @ 100 mls/hr Q24H IV Last administered on 04/01/17 12:24; Start 04/01/17 at 12:00 Losartan Potassium (Cozaar) 25 mg HS PO Last administered on 04/01/17 21:05; Start 04/01/17 at 21:00 Active Scripts Active Reported Latanoprost 2.5 Ml Drops 1 Drop OP HS Fenofibrate 54 Mg Tablet 54 Mg PO DAILY Clopidogrel (Clopidogrel Bisulfate) 75 Mg Tablet 75 Mg PO DAILY Multi-Day Vitamins (Multivitamin) 1 Each Tablet 1 Each PO DAILY Vitamin D3 (Cholecalciferol (Vitamin D3)) 1,000 Unit Tablet 1,000 Unit PO DAILY Gabapentin 100 Mg Capsule 100 Mg PO TID Metoprolol Tartrate 100 Mg Tablet 150 Mg PO DAILY Losartan Potassium 25 Mg Tablet 25 Mg PO DAILY Famotidine 20 Mg Tablet 20 Mg PO DAILY Glipizide 10 Mg Tablet 10 Mg PO BID Mysoline (Primidone) 250 Mg Tablet 250 Mg PO BID Lantus Solostar (Insulin Glargine,Hum.rec.anlog) 100 Unit/1 Ml Insuln.pen 25 Unit SQ HS Vitals/I & O Vital Sign - Last 24 Hours 04/01/17 04/01/17 04/01/17 04/01/17 11:44 12:28 15:30 15:44 Temp 99.7 100.0 99.7 100.0 Pulse 72 72 80 Resp 18 18 B/P (MAP) 184/60 (101) 184/60 183/74 (110) Pulse Ox 95 95 94 O2 Delivery Room Air Room Air Room Air 04/01/17 04/01/17 04/01/17 04/01/17 16:50 19:05 20:00 21:04 Temp 98.6 98.6 Pulse 80 85 Resp 16 17 B/P (MAP) 183/74 152/45 (80) Pulse Ox 95 O2 Delivery Room Air Room Air Room Air 04/01/17 04/01/17 04/01/17 04/02/17 21:05 23:05 23:19 01:55 Temp 98.2 98.2 Pulse 85 95 95 98 Resp 18 B/P (MAP) 152/45 195/60 (105) 186/45 158/53 (88) Pulse Ox 94 O2 Delivery Room Air 04/02/17 04/02/17 04/02/17 04/02/17 03:06 07:00 07:28 08:00 Temp 99.2 97.3 99.2 97.3 Pulse 100 95 Resp 16 18 16 B/P (MAP) 107/53 (71) 138/57 (84) Pulse Ox 93 95 O2 Delivery Room Air Room Air Room Air Room Air O2 Flow Rate 2.0 04/02/17 04/02/17 04/02/17 04/02/17 08:25 08:28 08:38 09:08 Pulse 100 Resp 16 16 16 B/P (MAP) 107/53 Pulse Ox 93 93 93 O2 Delivery Room Air Room Air Room Air O2 Flow Rate 2.0 2.0 Intake and Output 04/01/17 04/01/17 04/02/17 15:00 23:00 07:00 Intake Total 500 ml Output Total 950 ml Balance -950 ml 500 ml ARTEMIO TAFOYA MD Apr 02, 2017 10:56
[2017-04-02] MEDS: FLUCONAZOLE 200MG/100ML PREMIX 100 ML IV SCH (11:58)
[2017-04-02] MEDS: BISACODYL 10 MG SUPP.RECT. PR PRN (12:41)
[2017-04-02] MEDS ORDERED: FAMOTIDINE 20 MG TABLET. PO ONE (20:30)
[2017-04-02] MEDS: LOSARTAN POTASSIUM 25 MG TABLET. PO SCH (20:59)
[2017-04-02] MEDS: LATANOPROST 0.005% OPHTH SOLUTION 2.5ML BOTTLE. OU SCH (21:00)
[2017-04-02] MEDS: hydrALAZINE 20 MG/ML VIAL. IVP PRN (21:00)
[2017-04-02] MEDS: ENOXAPARIN 40 MG/0.4 ML SYRINGE. SQ SCH (21:01)
[2017-04-02] MEDS: INSULIN DETEMIR 300 UNITS/3 ML INSULN.PEN. SQ SCH (21:11)
[2017-04-03 03:45] VITALS: BP 158/55
[2017-04-03] MEDS: oxyCODONE IR 5 MG TABLET PO PRN ×4 (03:46→17:08)
[2017-04-03 07:00] VITALS: BP 183/67
[2017-04-03] MEDS: PANTOPRAZOLE 40 MG TABLET.DR. PO SCH (07:14)
[2017-04-03] MEDS: CHOLECALCIFEROL (VITAMIN D3) 1,000 UNIT TABLET PO SCH (07:15)
[2017-04-03] MEDS: POLYETHYLENE GLYCOL 3350 17 GM PACKET. PO SCH (07:15)
[2017-04-03] MEDS: FENOFIBRATE 54 MG TABLET. PO SCH (07:16)
[2017-04-03] MEDS: DOCUSATE SODIUM 100 MG CAPSULE. PO SCH ×2 (07:17→21:00)
[2017-04-03] MEDS: METOPROLOL TART IMMED RELEASE 50 MG TABLET. PO SCH (07:17)
[2017-04-03] MEDS: GABAPENTIN 100 MG CAPSULE. PO SCH ×3 (07:18→20:27)
[2017-04-03] MEDS: PRIMIDONE 250 MG PO SCH ×2 (07:18→20:27)
[2017-04-03] MEDS: MULTIVITAMIN with MINERAL TABLET. PO SCH (07:18)
[2017-04-03] MEDS: glipiZIDE 5 MG TABLET PO SCH ×2 (07:19→17:08)
[2017-04-03] MEDS: INSULIN ASPART 300 UNITS/3 ML INSULN.PEN SQ SCH ×3 (07:32→17:12)
--- NOTE | 2017-04-03 08:35 | PDOC ---
PROGRESS NOTES Subjective Subjective Problems overnight: no acute issues. pain well controlled on oral pain meds. Still having a hard time getting around with physical therapy. constipation has improved. Objective Vital Signs Vital Signs Date Time Temp Pulse Resp B/P (MAP) Pulse Ox O2 Delivery O2 Flow Rate FiO2 04/03/17 08:00 Room Air 04/03/17 07:18 16 95 04/03/17 07:17 93 183/67 04/03/17 07:00 98.7 98.7 04/02/17 20:00 2.0 Physical Exam left lower extremity in splint, clean, dry, and intact. neurovascularly intact distally on exposed toes. minimal swelling. mild knee effusion. Labs Laboratory Tests Test 04/01/17 11:19 04/01/17 16:24 04/01/17 20:21 04/02/17 07:32 Glucose (Fingerstick) 304 mg/dL (70-99) 190 mg/dL (70-99) 245 mg/dL (70-99) 218 mg/dL (70-99) Test 04/02/17 11:49 04/02/17 16:24 04/02/17 20:44 04/03/17 07:18 Glucose (Fingerstick) 250 mg/dL (70-99) 239 mg/dL (70-99) 196 mg/dL (70-99) 197 mg/dL (70-99) Laboratory Tests Test 04/02/17 11:49 04/02/17 16:24 04/02/17 20:44 04/03/17 07:18 Glucose (Fingerstick) 250 mg/dL (70-99) 239 mg/dL (70-99) 196 mg/dL (70-99) 197 mg/dL (70-99) Assessment Assessment POD# 3, S/P open reduction internal fixation left bimalleolar ankle fracture Problems: Plan Plan of Care pain control dvt prophylaxis while in splint nonweight bearing left lower extremity follow-up in my office in 7-10 days for staple removal. she has the paperwork and appointment information. ALONZO TORREZ MD Apr 03, 2017 08:35
[2017-04-03] MEDS: fentaNYL PF VIAL 100 MCG/2 ML VIAL IV PRN (08:54)
[2017-04-03 11:00] VITALS: BP 130/58
--- NOTE | 2017-04-03 11:17 | PDOC ---
PROGRESS NOTES Chief Complaint Chief Complaint Fall with L ankle fx ASSESSMENT AND PLAN: 1. L ankle fx: ORIF on 03/[address] Joseph. non weight bearing in LLE, 2. Pain control: adequate. 3. UTI: empiric ceftriaxone stopped, start Diflucan: 100K CFU yeast 4. Hypertension: well controlled on low dose Cozaar. 5. DM2: fairly well controlled on home glipizide. SSI 6. CHF: by pt report; no clinical sx, no home meds 7. Prophylaxis: Lovenox 8. Dispo: to rehab in a couple of days, on Tuesday. D/W RN, and family. History of Present Illness History of Present Illness pain well controlled with oral meds. Vitals Vitals Vital Signs Date Time Temp Pulse Resp B/P (MAP) Pulse Ox O2 Delivery O2 Flow Rate FiO2 04/03/17 09:24 16 95 Room Air 04/03/17 07:17 93 183/67 04/03/17 07:00 98.7 98.7 04/02/17 20:00 2.0 Physical Exam General: Alert, Oriented X3, Cooperative, No acute distress Heart: Regular rate Lungs: Clear Abdomen: Normal bowel sounds, Soft, No tenderness Extremities: Other (cast L distal LE) Skin: No rashes Labs LABS Laboratory Tests Test 04/02/17 11:49 04/02/17 16:24 04/02/17 20:44 04/03/17 07:18 Glucose (Fingerstick) 250 mg/dL (70-99) 239 mg/dL (70-99) 196 mg/dL (70-99) 197 mg/dL (70-99) Assessment and Plan Assessmemt and Plan Problems Medical Problems: (1) Ankle fracture, left Status: Acute Problems: Comment Review of Relevant I have reviewed the following items silvestre (where applicable) has been applied. Labs Laboratory Tests Test 04/01/17 11:19 04/01/17 16:24 04/01/17 20:21 04/02/17 07:32 Glucose (Fingerstick) 304 mg/dL (70-99) 190 mg/dL (70-99) 245 mg/dL (70-99) 218 mg/dL (70-99) Test 04/02/17 11:49 04/02/17 16:24 04/02/17 20:44 04/03/17 07:18 Glucose (Fingerstick) 250 mg/dL (70-99) 239 mg/dL (70-99) 196 mg/dL (70-99) 197 mg/dL (70-99) Laboratory Tests Test 04/02/17 11:49 04/02/17 16:24 04/02/17 20:44 04/03/17 07:18 Glucose (Fingerstick) 250 mg/dL (70-99) 239 mg/dL (70-99) 196 mg/dL (70-99) 197 mg/dL (70-99) Microbiology 03/29/17 Urine Culture - Final, Complete 03/29/17 Urine Culture Result 1 (RIC) - Final, Complete 03/29/17 Urine Culture Result 2 (RIC) - Final, Complete Medications Current Medications Fentanyl Citrate (Fentanyl 2ml Vial) 25 mcg PRN Q15MIN PRN IV PAIN GREATER THAN 3/10 Last administered on 03/29/17 18:13; Start 03/29/17 at 18:00; Stop 03/30 at 15:06; Status DC Ondansetron HCl (Zofran) 4 mg PRN Q8HRS PRN IV NAUSEA/VOMITING; Start 03/29/17 at 18:15; Stop 03/29/17 at 19:37; Status DC Fentanyl Citrate (Fentanyl 2ml Vial) 25 mcg PRN Q1HR PRN IV PAIN Last administered on 03/30/17 14:06; Start 03/29/17 at 18:15; Stop 03/30/17 at 16:07; Status DC Ondansetron HCl (Zofran) 4 mg PRN Q6HRS PRN IV NAUSEA/VOMITING; Start 03/29/17 at 19:34; Stop 03/30/17 at 19:33; Status DC Hydralazine HCl (Apresoline) 10 mg PRN Q4HRS PRN IVP ELEVATED BP, SEE COMMENTS Last administered on 04/02/17 21:00; Start 03/29/17 at 19:45 Enoxaparin Sodium (Lovenox 40mg Syringe) 40 mg Q24H SQ Last administered on 21:01; Start 03/29/17 at 19:45 Famotidine (Pepcid) 20 mg BID IVP Last administered on 03/30/17 09:00; Start at 21:00; Stop 03/30/17 at 17:16; Status DC Acetaminophen (Tylenol) 500 mg PRN Q6HRS PRN PO MILD PAIN / TEMP Last administered on 04/01/17 00:09; Start 03/29/17 at 19:45 Insulin Aspart (NovoLOG) 0-7 UNITS TIDWMEALS SQ ; Start 03/30/17 at 08:00; Stop 03/30/17 at 08:00; Status DC Dextrose (Dextrose 50%-Water Syringe) 12.5 gm PRN Q15MIN PRN IV SEE COMMENTS; Start 03/29/17 at 19:45; Status Cancel Insulin Aspart (NovoLOG) 0-7 UNITS TIDWMEALS SQ Last administered on 04/03/17 07:32; Start 03/30/17 at 08:00 Dextrose (Dextrose 50%-Water Syringe) 12.5 gm PRN Q15MIN PRN IV SEE COMMENTS; Start 03/29/17 at 21:15 Insulin Detemir (Levemir) 10 units QHS SQ Last administered on 04/02/17 21:11 ; Start 03/29/17 at 21:15 Vitamin D (Vitamin D3) 1,000 unit DAILY PO Last administered on 04/03/17 07:15 ; Start 03/30/17 at 09:00 Clopidogrel Bisulfate (Plavix) 75 mg DAILY PO Last administered on 03/30/17 09: 00; Start 03/30/17 at 09:00; Stop 03/30/17 at 17:16; Status DC Famotidine (Pepcid) 20 mg DAILY PO ; Start 03/30/17 at 09:00; Status Cancel Fenofibrate (Lofibra) 54 mg DAILY PO Last administered on 04/03/17 07:16; Start 03/30/17 at 09:00 Gabapentin (Neurontin) 100 mg TID PO Last administered on 04/03/17 07:18; Start 03/30/17 at 09:00 Losartan Potassium (Cozaar) 25 mg DAILY PO Last administered on 04/01/17 08:36 ; Start 03/30/17 at 09:00; Stop 04/01/17 at 17:53; Status DC Primidone (Mysoline) 250 mg BID PO Last administered on 04/01/17 08:35; Start 03/30/17 at 09:00; Stop 04/01/17 at 09:50; Status DC Glipizide (Glucotrol) 10 mg BIDWMEALS PO Last administered on 04/03/17 07:19; Start 03/30/17 at 08:00 Metoprolol Tartrate (Lopressor) 150 mg DAILY PO Last administered on 04/03/17 07:17; Start 03/30/17 at 09:00 Multivitamins (Thera M Plus) 1 tab DAILY PO Last administered on 04/03/17 07: 18; Start 03/30/17 at 09:00 Latanoprost (Xalatan) 1 drop HS OU Last administered on 04/02/17 21:00; Start 03/30/17 at 21:00 Ondansetron HCl (Zofran) 4 mg PRN Q6HRS PRN IV NAUSEA/VOMITING; Start 03/31/17 at 07:00; Stop 03/31/17 at 07:00; Status DC Fentanyl Citrate (Fentanyl 2ml Vial) 25 mcg PRN Q5MIN PRN IV MILD PAIN; Start 03/31/17 at 07:00; Stop 03/31/17 at 07:00; Status DC Fentanyl Citrate (Fentanyl 2ml Vial) 50 mcg PRN Q5MIN PRN IV MODERATE PAIN; Start 03/31/17 at 07:00; Stop 03/31/17 at 07:00; Status DC Ringer's Solution 1,000 ml @ 0 mls/hr Q0M IV ; Start 03/31/17 at 07:00; Stop 03/31/17 at 07:00; Status DC Lidocaine HCl 2 ml PRN 1X PRN ID PRIOR TO IV START; Start 03/31/17 at 07:00; Stop 03/31/17 at 16:51; Status DC Prochlorperazine Edisylate (Compazine) 5 mg PACU PRN PRN IV NAUSEA, MRX1 Last administered on 03/31/17 10:03; Start 03/31/17 at 07:00; Stop 03/31/17 at 16:51; Status DC Oxycodone HCl (Roxicodone) 5 mg Q4HRS PRN PO PAIN Last administered on 07:18; Start 03/30/17 at 16:15 Fentanyl Citrate (Fentanyl 2ml Vial) 25 mcg PRN Q4HRS PRN IV PAIN Last administered on 03/31/17 20:33; Start 03/30/17 at 16:15; Stop 03/31/17 at 23:29; Status DC Pantoprazole Sodium (Protonix) 40 mg DAILYAC PO Last administered on 04/03/17 07:14; Start 03/31/17 at 07:30 Ceftriaxone Sodium 1 gm/ Sodium Chloride 50 ml @ 100 mls/hr Q24H IV Last administered on 03/31/17 18:24; Start 03/30/17 at 18:00; Stop 04/01/17 at 11:47; Status DC Propofol 20 ml @ As Directed STK-MED ONCE IV ; Start 03/31/17 at 08:06; Stop 03/31 at 08:07; Status DC Fentanyl Citrate (Fentanyl 2ml Vial) 100 mcg STK-MED ONCE .ROUTE ; Start at 08:09; Stop 03/31/17 at 08:10; Status DC Cefazolin Sodium/ Dextrose 50 ml @ As Directed STK-MED ONCE IV ; Start 03/31/17 at 08:14; Stop 03/31/17 at 08:15; Status DC Cefazolin Sodium/ Dextrose 50 ml @ 100 mls/hr 1X ONCE IV Last administered on 03/31/17 08:25; Start 03/31/17 at 08:30; Stop 03/31/17 at 08:59; Status DC Ringer's Solution 1,000 ml @ 75 mls/hr [id number] IV Last administered on 15:00; Start 03/31/17 at 08:30; Stop 04/01/17 at 10:50; Status DC Ephedrine Sulfate 50 mg STK-MED ONCE IV ; Start 03/31/17 at 08:30; Stop 03/31/17 at 08:31; Status DC Bupivacaine HCl/ Epinephrine Bitart (Marcaine-Epi 0.25%-[id number]) 50 ml STK-MED ONCE .ROUTE Last administered on 03/31/17 08:51; Start 03/31/17 at 08:33; Stop 03/31/17 at 08:34; Status DC Ondansetron HCl (Zofran) 4 mg STK-MED ONCE .ROUTE ; Start 03/31/17 at 08:38; Stop 03/31/17 at 08:39; Status DC Lidocaine HCl (Lidocaine Pf 2% Vial) 5 ml STK-MED ONCE .ROUTE ; Start 03/31/17 at 09:25; Stop 03/31/17 at 09:26; Status DC Sevoflurane (Ultane) 60 ml STK-MED ONCE IH ; Start 03/31/17 at 09:26; Stop at 09:27; Status DC Ondansetron HCl (Zofran) 4 mg PRN Q6HRS PRN IV NAUSEA/VOMITING; Start 03/31/17 at 10:15; Stop 03/31/17 at 16:51; Status DC Fentanyl Citrate (Fentanyl 2ml Vial) 25 mcg PRN Q5MIN PRN IV MILD PAIN; Start 03/31/17 at 10:15; Stop 03/31/17 at 16:51; Status DC Fentanyl Citrate (Fentanyl 2ml Vial) 50 mcg PRN Q5MIN PRN IV MODERATE PAIN Last administered on 03/31/17 11:06; Start 03/31/17 at 10:15; Stop 03/31/17 at 16: 51; Status DC Ringer's Solution 1,000 ml @ 0 mls/hr Q0M IV ; Start 03/31/17 at 10:05; Stop 03/31/17 at 16:51; Status DC Lidocaine HCl 2 ml PRN 1X PRN ID PRIOR TO IV START; Start 03/31/17 at 10:15; Stop 03/31/17 at 16:51; Status DC Prochlorperazine Edisylate (Compazine) 5 mg PACU PRN PRN IV NAUSEA, MRX1; Start 03/31/17 at 10:15; Stop 03/31/17 at 16:51; Status DC Fentanyl Citrate (Fentanyl 2ml Vial) 25 mcg PRN Q2HRS PRN IV SEVERE PAIN; Start 04/01/17 at 16:15; Stop 04/01/17 at 16:15; Status DC Fentanyl Citrate (Fentanyl 2ml Vial) 25 mcg PRN Q2HRS PRN IV SEVERE PAIN Last administered on 04/03/17t 08:54; Start 03/31/17 at 23:45 Non-Formulary Medication 1 ea BID PO Last administered on 04/03/17 07:18; Start 04/01/17 at 21:00 Bisacodyl (Dulcolax Supp) 10 mg PRN DAILY PRN SD CONSTIPATION Last administered on 04/02/17 12:41; Start 04/01/17 at 10:00 Docusate Sodium (Colace) 100 mg BID PO Last administered on 04/03/17 07:17; Start 04/01/17 at 10:00 Polyethylene Glycol (miraLAX PACKET) 17 gm PRN DAILY PRN PO CONSTIPATION; Start 04/01/17 at 10:00; Stop 04/02/17 at 09:00; Status DC Polyethylene Glycol (miraLAX PACKET) 17 gm DAILY PO Last administered on 07:15; Start 04/01/17 at 12:00 Fluconazole/ Sodium Chloride 100 ml @ 100 mls/hr Q24H IV Last administered on 04/02/17 11:58; Start 04/01/17 at 12:00 Losartan Potassium (Cozaar) 25 mg HS PO Last administered on 04/02/17 20:59; Start 04/01/17 at 21:00 Famotidine (Pepcid) 20 mg 1X ONCE PO Last administered on 04/02/17 20:59; Start 04/02/17 at 20:30; Stop 04/02/17 at 20:31; Status DC Active Scripts Active Reported Latanoprost 2.5 Ml Drops 1 Drop OP HS Fenofibrate 54 Mg Tablet 54 Mg PO DAILY Clopidogrel (Clopidogrel Bisulfate) 75 Mg Tablet 75 Mg PO DAILY Multi-Day Vitamins (Multivitamin) 1 Each Tablet 1 Each PO DAILY Vitamin D3 (Cholecalciferol (Vitamin D3)) 1,000 Unit Tablet 1,000 Unit PO DAILY Gabapentin 100 Mg Capsule 100 Mg PO TID Metoprolol Tartrate 100 Mg Tablet 150 Mg PO DAILY Losartan Potassium 25 Mg Tablet 25 Mg PO DAILY Famotidine 20 Mg Tablet 20 Mg PO DAILY Glipizide 10 Mg Tablet 10 Mg PO BID Mysoline (Primidone) 250 Mg Tablet 250 Mg PO BID Lantus Solostar (Insulin Glargine,Hum.rec.anlog) 100 Unit/1 Ml Insuln.pen 25 Unit SQ HS Vitals/I & O Vital Sign - Last 24 Hours 6/08/0904/02/17 04/02/17 04/02/17 13:53 15:00 15:55 19:43 Temp 98.3 98.3 98.3 98.3 Pulse 70 70 Resp 16 18 16 18 B/P (MAP) 178/52 (94) 183/59 (100) Pulse Ox 97 96 97 95 O2 Delivery Room Air Room Air Room Air Room Air 04/02/17 04/02/17 04/02/17 04/02/17 20:00 20:59 21:00 23:04 Temp 99.8 99.8 Pulse 70 70 89 Resp 18 B/P (MAP) 183/59 183/59 153/54 (87) Pulse Ox 92 O2 Delivery Room Air Room Air O2 Flow Rate 2.0 04/03/17 04/03/17 04/03/17 04/03/17 03:45 07:00 07:17 07:18 Temp 99.4 98.7 99.4 98.7 Pulse 82 93 93 Resp 18 16 16 B/P (MAP) 158/55 (89) 183/67 (105) 183/67 Pulse Ox 95 96 95 O2 Delivery Room Air Room Air Room Air 04/03/17 04/03/17 04/03/17 04/03/17 08:00 08:18 08:54 09:24 Resp 16 16 16 Pulse Ox 95 95 95 O2 Delivery Room Air Room Air Room Air Room Air Intake and Output 04/02/17 04/02/17 04/03/17 15:00 23:00 07:00 Output Total 600 ml Balance -600 ml ARTEMIO TAFOYA MD Apr 03, 2017 11:17
[2017-04-03] MEDS: FLUCONAZOLE 200MG/100ML PREMIX 100 ML IV SCH (12:08)
[2017-04-03 15:00] VITALS: BP 140/56
[2017-04-03 19:00] VITALS: BP 178/56
[2017-04-03] MEDS: LATANOPROST 0.005% OPHTH SOLUTION 2.5ML BOTTLE. OU SCH (20:27)
[2017-04-03] MEDS: LOSARTAN POTASSIUM 25 MG TABLET. PO SCH (20:28)
[2017-04-03] MEDS: ENOXAPARIN 40 MG/0.4 ML SYRINGE. SQ SCH (20:30)
[2017-04-03] MEDS: INSULIN DETEMIR 300 UNITS/3 ML INSULN.PEN. SQ SCH (21:28)
[2017-04-03] MEDS ORDERED: LISINOPRIL 10 MG TABLET PO ONE (23:30)
[2017-04-03 23:59] VITALS: BP 185/65
[2017-04-04] MEDS: oxyCODONE IR 5 MG TABLET PO PRN ×3 (03:03→14:39)
[2017-04-04 03:17] VITALS: BP 172/57
[2017-04-04 07:00] VITALS: BP 152/61
[2017-04-04] MEDS ORDERED: FLUCONAZOLE 100 MG TABLET. PO SCH (09:00)
[2017-04-04] MEDS: INSULIN ASPART 300 UNITS/3 ML INSULN.PEN SQ SCH ×2 (09:01→12:48)
[2017-04-04] MEDS: FENOFIBRATE 54 MG TABLET. PO SCH (09:04)
[2017-04-04] MEDS: DOCUSATE SODIUM 100 MG CAPSULE. PO SCH (09:04)
[2017-04-04] MEDS: GABAPENTIN 100 MG CAPSULE. PO SCH ×2 (09:04→14:37)
[2017-04-04] MEDS: METOPROLOL TART IMMED RELEASE 50 MG TABLET. PO SCH (09:10)
[2017-04-04] MEDS: PRIMIDONE 250 MG PO SCH (09:12)
[2017-04-04] MEDS: POLYETHYLENE GLYCOL 3350 17 GM PACKET. PO SCH (09:13)
[2017-04-04] MEDS ORDERED: OXYC5TAB PO (10:01)
[2017-04-04] MEDS: MULTIVITAMIN with MINERAL TABLET. PO SCH (10:08)
[2017-04-04] MEDS: CHOLECALCIFEROL (VITAMIN D3) 1,000 UNIT TABLET PO SCH (10:09)
[2017-04-04] MEDS: PANTOPRAZOLE 40 MG TABLET.DR. PO SCH (10:09)
[2017-04-04] MEDS: glipiZIDE 5 MG TABLET PO SCH (10:09)
[2017-04-04 11:00] VITALS: BP 176/68
--- NOTE | 2017-04-04 13:11 | PDOC3 ---
Discharge Summary [facility] Date of Admission: Mar 30, 2017 Discharge Date: Apr 04, 2017 Admitting Diagnosis 1. L ankle fx: ORIF on 03/[address] Joseph. non weight bearing in LLE, 2. Pain control 3. UTI 4. Hypertension: 5. DM2: 6. CHF: Problems: Final Diagnosis CONSULTS ortho Procedures ORIF Brief Hospital Course Ms. Amezcua is a 76 old [F, comes post fall ,was found left ankle fx, go ORIF on 03/31 by ortho. still has pain, able to do PT with non weight bearing. dc to rehab, dc time 35min General: Alert, Oriented X3, Cooperative, No acute distress Heart: Regular rate Lungs: Clear Abdomen: Normal bowel sounds, Soft, No tenderness Extremities: Other (cast L distal LE) Skin: No rashes Problems: Disposition rehab CONDITION AT DISCHARGE: Improved Diet regular, ADA Scheduled Cholecalciferol (Vitamin D3) (Vitamin D3), 1,000 UNIT PO DAILY, (Reported) Clopidogrel Bisulfate (Clopidogrel), 75 MG PO DAILY, (Reported) Famotidine (Famotidine), 20 MG PO DAILY, (Reported) Fenofibrate (Fenofibrate), 54 MG PO DAILY, (Reported) Gabapentin (Gabapentin), 100 MG PO TID, (Reported) Glipizide (Glipizide), 10 MG PO BID, (Reported) Insulin Glargine,Hum.rec.anlog (Lantus Solostar), 25 UNIT SQ HS, (Reported) Latanoprost (Latanoprost), 1 DROP OP HS, (Reported) Losartan Potassium (Losartan Potassium), 25 MG PO DAILY, (Reported) Metoprolol Tartrate (Metoprolol Tartrate), 150 MG PO DAILY, (Reported) Multivitamin (Multi-Day Vitamins), 1 EACH PO DAILY, (Reported) Primidone (Mysoline), 250 MG PO BID, (Reported) Scheduled PRN Oxycodone Hcl (Oxycodone Hcl), 5 MG PO Q4HRS PRN for PAIN Follow Up ortho in 1 week CORNELIA THAO MD Apr 04, 2017 13:11
[2017-04-04 15:00] VITALS: BP 179/54
== END 2017-04-04 15:20 | DRG 493 ==
LOC: ER 15:13 → 4 NORTH 18:00 → OBSVTOIN 03-30 04:10 → 4 NORTH 03-31 03:48
PROVIDERS: ADMIT Internal Medicine; ATTEND Internal Medicine
PROC: 0QSH04Z Reposition Left Tibia with Internal Fixation Device, Open Approach (ICD-10-PCS; principal; 2017-03-30)
PROC: 0QSK04Z Reposition Left Fibula with Internal Fixation Device, Open Approach (ICD-10-PCS; 2017-03-30)
DX: S82.842A Displaced bimalleolar fracture of left lower leg, initial encounter for closed fracture (principal); N39.0 Urinary tract infection, site not specified; I50.9 Heart failure, unspecified; G40.909 Epilepsy, unspecified, not intractable, without status epilepticus; E11.65 Type 2 diabetes mellitus with hyperglycemia; W01.0XXA Fall on same level from slipping, tripping and stumbling without subsequent striking against object, initial encounter; I11.0 Hypertensive heart disease with heart failure; D72.828 Other elevated white blood cell count; Z86.711 Personal history of pulmonary embolism; Z90.710 Acquired absence of both cervix and uterus; Z82.49 Family history of ischemic heart disease and other diseases of the circulatory system; Z79.4 Long term (current) use of insulin; Y93.89 Activity, other specified; Y92.89 Other specified places as the place of occurrence of the external cause; Y99.8 Other external cause status; Z88.5 Allergy status to narcotic agent; Z88.8 Allergy status to other drugs, medicaments and biological substances; Z91.09 Other allergy status, other than to drugs and biological substances; Z79.899 Other long term (current) drug therapy
CPT/HCPCS: 36415; 73562; 73600; 73610; 76000; 80048; 81001; 82306; 82962; 85027; 85610; 85730; 87086; 87641; A4215; A6539; C1713; G0378; G0379; J0360; J0690; J0696; J0780; J1450; J1650; J1815; J2001; J2405; J2704; J3010; J7120; S0028; 97530; 97535